=== PATIENT | female | born 1965 | race African-American/Black ===

== ENCOUNTER 2020-05-19 11:29 | Inpatient (IN) ==
[2020-05-19 11:39] VITALS: BMI 72.6
[2020-05-19] MEDS ORDERED: ZOFRAN INJ 4 MG VIAL IVP ONE (12:43)
--- NOTE | 2020-05-19 12:44 | DR.GENAD ---
HPI Time Seen Time Seen by Provider: 05/19/20 12:35 PCP Primary Care Physician: NEGAR HPI Comment HPI Comment: A 54 y/o female presents with 6 months of belching and she hasn't been told the cause. Currently, she has been feeling SOB, nauseous, and feels bad. She denies fever. She had a COVID-19 test done a few days back and got a negative report this morning. Complaint/Symptoms Chief Complaint:: PT STATES SHE GOT HER COVID RESULTS THIS AM AND IT WAS ( -) , PT C/O HEART RACING , AND SPITTING UP WHITE STUFF AND SHE STATES " I NEVER BEEN SO SICK " ,,BR Self Treatment fo Chief Complaint: PT STATES " NOBODY CAN TELL ME WHAT'S WRONG WITH ME AND WHY I FEEL SO BAD ".BR COVID-19 Coronavirus risk:travel/contact w/high risk person: No Has patient experienced Coronavirus symptoms: Yes Coronavirus symptoms experienced: Shortness of Breath Nurses notes reviewed Nurses Notes Review: Yes Source History Provided: Patient Mode of Arrival Mode of Arrival: Ambulatory Timing Onset of Chief Complaint: 05/17/20 [facility] Past Medical History: Yes Past Medical History Comment: HTN Past Surgical History: Yes Past Surgical History Comment: TUBAL Family History History of Family Medical Conditions: Yes Family Medical History: Diabetes Mellitus and Hypertension Social History Does patient currently use any type of tobacco product: No Have you used tobacco products in the last 12 months: No Type of Tobacco Use: None Does any household member use tobacco: No Alcohol Use: None Do you use any recreational Drugs:: No Lives With: Family Lives Where: Home Travel Risk Coronavirus risk:travel/contact w/high risk person: No Has patient experienced Coronavirus symptoms: Yes Coronavirus symptoms experienced: Shortness of Breath Infectious screening In the last 2 months have you had wt loss of >10#?: NO Have you had fever, night sweats or hemotysis?: No Have you traveled outside the country in the last 6 months?: No Isolation: Droplet ROS Review of Systems Constitutional: Other (bad) Eyes: No Symptoms Reported ENTM: No Symptoms Reported Respiratoy: Short of Breath Cardiovascular: No Symptoms Reported Gastrointestinal/Abdominal: Other (Belching) Genitourinary: No Symptoms Reported Neurological: No Symptoms Reported Musculoskeletal: No Symptoms Reported Integumentary: No Symptoms Reported Hematologic/Lymphatic: No Symptoms Reported Endocrine: No Symptoms Reported Psychiatric: No Symptoms Reported PE Vital Signs Vitals: Temperature 98.6 F Pulse Rate 81 Respiratory Rate 23 Blood Pressure 106/57 O2 Sat by Pulse Oximetry 95 General Limitations: No Limitations General Appearance: Alert, In No Apparent Distress and Obese Head Head Exam: Normal Inspection, Atraumatic and Normocephalic Eyes Eye exam: Normal Appearance and EOMI ENT ENT Exam: Normal Exam, Normal Oropharynx, Normal External Ear Exam and Mucous Membranes Moist Neck Neck Exam: Normal Inspection, Full ROM and Trachea Midline Chest Chest Inspection: Normal Inspection and Symmetric Chest Wall Rise Respiratory Respiratory Exam: Normal Lung Sounds Bilat Cardiovascular Cardiovascular Exam: Regular Rate, Normal Rhythm, Normal Heart Sounds, +S1 and +S2 Abdominal Exam Abdominal Exam: Normal Inspection, Normal Bowel Sounds, Soft and Tenderness Abdominal Tenderness: Epigastrium Extremities Extremities Exam: Normal Inspection and Full ROM Back Back Exam: Normal Inspection and Full ROM Neurologic Neurological Exam: Alert and Oriented X3 Psychiatric Psychiatric Exam: Normal Affect and Normal Mood Skin Skin Exam: Dry and Normal Color COURSE Treatment Treatment: From talking with her at follow-up and medical records review, she has been refered to and is already seeing a gastro-enterologist. She has had both an EGD and C-Scope. She is already taking both an H2 david and a PPI. She had work-up for same symptoms at presentation to the ED at [facility] ED yesterday. I'll give her an rx. for Simethicone and she is to follow-up with her primary Care Provider +/- G.I. next week after the holidays. Reevaluation 1st: Unchanged Education/Counseling Education/Counseling: Patient, Education and Counseling Educated On: Treatment, Diagnosis, Prognosis and Needs for Follow Up ROR Labs Reviewed Result Diagrams: 05/19/20 13:19 05/19/20 13:19 Laboratory: WBC 4.5 X10^3/uL (3.6-10.0) 05/19/20 13:19 RBC 4.75 X10^6/uL (3.5-5.4) 05/19/20 13:19 Hgb 12.3 g/dL (12.0-16.0) 05/19/20 13:19 Hct 38.8 % (36.0-47.0) 05/19/20 13:19 MCV 81.8 fL (80.0-100.0) 05/19/20 13:19 MCH 25.9 pg (27.0-34.0) L 05/19/20 13:19 MCHC 31.6 g/dL (33.0-35.0) L 05/19/20 13:19 RDW 13.9 % (11.6-16.5) 05/19/20 13:19 Plt Count 253 X10^3/uL (150.0-450.0) 05/19/20 13:19 Plt Count Comment Adequate (ADEQUATE) 05/19/20 13:19 MPV 7.9 fL (7.4-11.0) 05/19/20 13:19 Neut % (Auto) 60.1 % (42.0-75.0) 05/19/20 13:19 Lymph % (Auto) 26.6 % (21.0-51.0) 05/19/20 13:19 [place] % (Auto) 12.7 % (0.0-13.0) 05/19/20 13:19 Eos % (Auto) 0.1 % (0.9-2.9) L 05/19/20 13:19 Baso % (Auto) 0.5 % (0.2-1.0) 05/19/20 13:19 Neut # (Auto) 2.7 x10^3/uL (2.2-4.8) 05/19/20 13:19 Lymph # (Auto) 1.2 X10^3/uL (1.3-2.9) L 05/19/20 13:19 [place] # (Auto) 0.6 x10^3/uL (0.3-0.8) 05/19/20 13:19 Eos # (Auto) 0.0 x10^3/uL (0.0-0.2) 05/19/20 13:19 Baso # (Auto) 0.0 X10^3/uL (0.0-0.1) 05/19/20 13:19 Absolute Nucleated RBC 0.1 /100WBC 05/19/20 13:19 Plt Morphology Comment Normal (NORMAL) 05/19/20 13:19 RBC Morphology Abnormal (NORMAL) A 05/19/20 13:19 Hypochromasia Slight A 05/19/20 13:19 Sodium 136 mmol/L (136-145) 05/19/20 13:19 Corrected Sodium TNP 05/19/20 13:19 Potassium 4.3 mmol/L (3.5-5.1) 05/19/20 13:19 Chloride 99 mmol/L (98-107) 05/19/20 13:19 Carbon Dioxide 31.1 mmol/L (21-32) 05/19/20 13:19 BUN 16 mg/dL (7-18) 05/19/20 13:19 Creatinine 1.35 mg/dL (0.55-1.02) H 05/19/20 13:19 Est GFR (MDRD) Af Amer 52 (>60) L 05/19/20 13:19 Est GFR (MDRD) Non-Af 43 (>60) L 05/19/20 13:19 Glucose 110 mg/dL (65-99) H 05/19/20 13:19 Calcium 8.6 mg/dL (8.5-10.1) 05/19/20 13:19 Corrected Calcium 9.4 mg/dL (8.5-10.1) 05/19/20 13:19 Total Bilirubin 0.30 mg/dL (0.2-1.0) 05/19/20 13:19 AST 23 Units/L (15-37) 05/19/20 13:19 ALT 15 Units/L (12-78) 05/19/20 13:19 Alkaline Phosphatase 66 Units/L (46-116) 05/19/20 13:19 Total Protein 7.6 g/dL (6.4-8.2) 05/19/20 13:19 Albumin 3.0 g/dL (3.4-5.0) L 05/19/20 13:19 Globulin 4.6 g/dL (2.5-4.5) H 05/19/20 13:19 Albumin/Globulin Ratio 0.7 Ratio (1.1-2.1) L 05/19/20 13:19 Amylase 43 Units/L (25-115) 05/19/20 13:19 Lipase 210 Units/L (73-393) 05/19/20 13:19 Opioid Opioid Risk Tool Age (Jerad box if 16-45): No History of Preadolescent Sexual Abuse: No Total: 0 Total Score Risk Category: Low Risk Copyright: [facility] predicting aberrant behaviors Diagnosis Discharge Problem: Weakness, Belching, Acute epigastric pain, Nausea Instructions Instructions: Weakness, [id number] Nausea, Adult, [id number] Forms: Precautions for COVID19 Patient Portal Social Distancing ADDITIONAL NOTES Additional Notes Additional Notes: Name: GEETA ORTIZ : 1965 Sex: F Location: ER Order Number(s): [id number] Procedure(s):ACUTE ABDOMEN SERIES Ordering Physician: AMBROCIO JAMES Primary Care: NFD,None Service Date: 05/19/20 Service Time: 1253 HISTORY NAUSEA, ABDOMINAL PAIN HTN, TUBAL STUDY ACUTE ABDOMEN SERIES COMPARISON None FINDINGS Chest: There is mild cardiomegaly. There is a large body habitus. No evidence of effusion or pneumothorax. No dominant alveolar infiltrates. Abdomen: There is abnormal dilated small bowel loops, no evidence of free air, air throughout the colon, the liver appears enlarge as well as the spleen in the upright view. No significant air-fluid levels. Air in a decompressed stomach IMPRESSION 1. [No acute cardiopulmonary disease.] 2. [No significant air-fluid levels or dilated small-bowel loops. Decompressed stomach. Hepato and splenomegaly Electronically signed by: Lizet Reid (May 19, 2020 13:29:37)
[2020-05-19] MEDS ORDERED: ZOFRAN INJ 4 MG VIAL ONE (12:56)
--- NOTE | 2020-05-19 13:31 | RAD ---
HISTORYNAUSEA, ABDOMINAL PAIN HTN, TUBALSTUDYACUTE ABDOMEN SERIESCOMPARISONNoneFINDINGSChest: There is mild cardiomegaly. There is a large body habitus. No evidence of effusion or pneumothorax. No dominant alveolar infiltrates.Abdomen: There is abnormal dilated small bowel loops, no evidence of free air, air throughout the colon, the liver appears enlarge as well as the spleen in the upright view. No significant air-fluid levels. Air in a decompressed stomachIMPRESSION1. [No acute cardiopulmonary disease.]2. [No significant air-fluid levels or dilated small-bowel loops. Decompressed stomach. Hepato and splenomegalyElectronically signed by: Lizet Reid (May 19, 2020 13:29:37)
[2020-05-19 13:42] LABS: BASOPHILS % (AUTO) 0.5 % (0.2-1.0); EOSINOPHILS % (AUTO) 0.1 % (0.9-2.9); HEMATOCRIT 38.8 % (36.0-47.0); HEMOGLOBIN 12.3 g/dL (12.0-16.0); LYMPHOCYTES # (AUTO) 1.2 X10^3/uL (1.3-2.9); LYMPHOCYTES % (AUTO) 26.6 % (21.0-51.0); MEAN CORPUSCULAR HEMOGLOBIN 25.9 pg (27.0-34.0); MEAN CORPUSCULAR HGB CONC 31.6 g/dL (33.0-35.0); MEAN CORPUSCULAR VOLUME 81.8 fL (80.0-100.0); MEAN PLATELET VOLUME 7.9 fL (7.4-11.0); MONOCYTES # (AUTO) 0.6 x10^3/uL (0.3-0.8); MONOCYTES % (AUTO) 12.7 % (0.0-13.0); NEUTROPHILS # (AUTO) 2.7 x10^3/uL (2.2-4.8); NEUTROPHILS % (AUTO) 60.1 % (42.0-75.0); PLATELET COUNT 253 X10^3/uL (150.0-450.0); RED BLOOD COUNT 4.75 X10^6/uL (3.5-5.4); RED CELL DISTRIBUTION WIDTH 13.9 % (11.6-16.5); WHITE BLOOD COUNT 4.5 X10^3/uL (3.6-10.0)
[2020-05-19 13:43] LABS: ALANINE AMINOTRANSFERASE 15 Units/L (12-78); ALKALINE PHOSPHATASE 66 Units/L (46-116); AMYLASE 43 Units/L (25-115); ASPARTATE AMINO TRANSFERASE 23 Units/L (15-37); BLOOD UREA NITROGEN 16 mg/dL (7-18); CALCIUM 8.6 mg/dL (8.5-10.1); CARBON DIOXIDE 31.1 mmol/L (21-32); CHLORIDE 99 mmol/L (98-107); COR CA(FOR HYPOALB) 9.4 mg/dL (8.5-10.1); CREATININE 1.35 mg/dL (0.55-1.02); LIPASE 210 Units/L (73-393); SODIUM 136 mmol/L (136-145); TOTAL PROTEIN 7.6 g/dL (6.4-8.2); eGFR NON BLACK RACES 43 (>60)
[2020-05-19 14:07] LABS: HYPOCHROMASIA SLIGHT; PLATELET MORPHOLOGY COMMENT NORMAL (NORMAL)
[2020-05-19] MEDS ORDERED: MYLICON TAB 80 MG CHEW PO ONE (14:36)
[2020-05-19 15:46] LABS: ABG BASE EXCESS 5.1 mmol/L (-2.0-2.0)
[2020-05-19 15:47] LABS: ABG ALLEN TEST POS
[2020-05-19 16:47] LABS: CREATINE KINASE 148 Units/L (26-192)
[2020-05-19 16:48] LABS: TROPONIN I < 0.02 ng/mL (0-1.5)
[2020-05-19 16:53] LABS: CKMB % 0.7 % (<4); CREATINE KINASE MB < 1.0 ng/mL (0-4.0)
--- NOTE | 2020-05-19 17:00 | CT ---
HISTORYPT STATES SHE GOT HER COVID RESULTS THIS AM AND IT WAS, PT C/O HEART RACING, AND SPITTING UP WHITE STUFF AND SHE STATES "I NEVER BEEN SO SICK ". PT STATES "NOBODY CAN TELL ME WHAT'S WRONG WITH ME AND WHY I FEEL SO BAD" PT SEEN IN H TRUNCATED ...STUDYCTA CHESTCOMPARISONNoneTECHNIQUEPulmonary angiogram was performed after the administration of contrast. 3D MIPS images were performed. CT scan was performed following ALARA (As low as Reasonably Achievable).Coronal and Sagittal reformatted images were performed.FINDINGSThe thyroid gland is not enlarged. There is no evidence of pulmonary embolism, there are small right perihilar lymph nodes,there is no pleural or pericardial effusions, no adrenal masses.Lung windows demonstrate multiport areas of ground-glass radiopacities involving the upper lobe centrally and mild along the bases in the periphery consistent with viral pneumonia. No evidence of focal effusions. There is a sub carinal lymph node measuring in short axis 1.1 centimeter, there are enlarged pretracheal lymph nodes measuring 0.9 centimeters and there are multiple aortic pulmonary window lymph nodes measuring in short axis 1.2 centimeters.Bone windows no evidence of aggressive bone lesions, no acute fractures.IMPRESSIONNo evidence of pulmonary embolism. Mediastinal adenopathy involving sub carinal aortic, pulmonary window and right hilumPatchy ground-glass radiopacities involving the upper lobes centrally and peripheral as well as the lower lobes at the periphery suspicious for viral pneumonia.Electronically signed by: Lizet Reid (May 19, 2020 16:58:59)
[2020-05-19] MEDS ORDERED: ZOFRAN TAB 4 MG PO PRN (19:47)
[2020-05-19] MEDS ORDERED: NS 1000 ML 1,000 ML ONE (19:51)
[2020-05-19] MEDS: NS 1000 ML 1,000 ML IV SCH (20:15)
[2020-05-19] MEDS: ROCEPHIN VIAL 1 GRAM 1 G in NS 100 ML IV + SPIKE MINIBAG* 100 ML IV SCH (20:45)
[2020-05-19] MEDS: DUONEB 0.5 MG/3 MG (3 mL) NEB SCH (20:46)
[2020-05-19] MEDS: SOLU-Medrol 40 MG VIAL IVP SCH (21:42)
[2020-05-19] MEDS: PEPCID TAB 20 MG PO SCH (22:00)
[2020-05-20] MEDS: DUONEB 0.5 MG/3 MG (3 mL) NEB SCH ×6 (00:55→21:05)
[2020-05-20] MEDS: NS 1000 ML 1,000 ML IV SCH ×5 (04:32→20:39)
[2020-05-20 05:08] LABS: ABG BASE EXCESS 1.8 mmol/L (-2.0-2.0); ABG HCO3 27.7 mmol/L (22-26)
[2020-05-20 05:09] LABS: ABG ALLEN TEST POS
[2020-05-20 05:36] LABS: BASOPHILS % (AUTO) 0.2 % (0.2-1.0); HEMATOCRIT 37.6 % (36.0-47.0); LYMPHOCYTES # (AUTO) 0.3 X10^3/uL (1.3-2.9); LYMPHOCYTES % (AUTO) 9.5 % (21.0-51.0); MEAN CORPUSCULAR HEMOGLOBIN 25.9 pg (27.0-34.0); MEAN CORPUSCULAR HGB CONC 31.8 g/dL (33.0-35.0); MEAN CORPUSCULAR VOLUME 81.3 fL (80.0-100.0); MEAN PLATELET VOLUME 8.1 fL (7.4-11.0); MONOCYTES # (AUTO) 0.1 x10^3/uL (0.3-0.8); MONOCYTES % (AUTO) 3.5 % (0.0-13.0); NEUTROPHILS # (AUTO) 3.1 x10^3/uL (2.2-4.8); NEUTROPHILS % (AUTO) 86.8 % (42.0-75.0); PLATELET COUNT 273 X10^3/uL (150.0-450.0); RED BLOOD COUNT 4.63 X10^6/uL (3.5-5.4); WHITE BLOOD COUNT 3.6 X10^3/uL (3.6-10.0)
[2020-05-20] MEDS: SOLU-Medrol 40 MG VIAL IVP SCH ×3 (05:42→21:01)
[2020-05-20 05:57] LABS: ALBUMIN 2.8 g/dL (3.4-5.0); CARBON DIOXIDE 28.1 mmol/L (21-32); CREATININE 1.29 mg/dL (0.55-1.02); TOTAL PROTEIN 7.6 g/dL (6.4-8.2)
[2020-05-20 06:00] LABS: PLATELET MORPHOLOGY COMMENT NORMAL (NORMAL)
[2020-05-20] MEDS ORDERED: PREVACID PO SCH (06:30)
--- NOTE | 2020-05-20 06:55 | RAD ---
HISTORYF/U COVID +STUDYCHEST, 1 VIEWCOMPARISONCT dated 05/19/2020FINDINGSThe trachea is midline. The cardiac silhouette is enlarged with a tortuous thoracic aorta . Scattered interstitial lung changes throughout the right and left chest are observed. The bony thorax is unremarkable.IMPRESSIONPersistent interstitial lung changes are noted consistent with CT findings.Electronically signed by: NAVI SANTOS (May 20, 2020 06:52:55)
[2020-05-20] MEDS ORDERED: REMDESIVIR 200 MG in NS 250 ML IV 250 ML IV SCH (07:15)
[2020-05-20] MEDS ORDERED: PULMICORT NEB TX 0.5 MG NEB ONE (07:36)
--- NOTE | 2020-05-20 07:38 | DR.H&P ---
H&P - History & Physical for Day of: H&P Date: 05/19/20 - Chief Complaint Chief Complaint: COUGH, SOB, NAUSEA, BODY ACHES, MALAISE - History of Present Illness History of Present Illness: IS A 54 YEAR OLD FEMALE. SHE PRESENTED TO THE ER WITH COMPLAINTS OF SHORTNESS OF BREATH, NAUSEA, PRODUCTIVE COUGH, BODY ACHES, AND MALAISE. SHE ADMITS TO BELCHING FOR THE PAST 6 MONTHS. SHE REPORTS RECENTLY BEING SWABBED FOR COVID, BUT STATES THAT HER RESULT WAS NEGATIVE. SYMPTOMS STARTED ABOUT 3 DAYS PRIOR AND HAVE PROGRESSIVELY GOTTEN WORSE. SHE HAS A PMH OF HTN. ON ARRIVAL TO THE ER, VITALS WERE 98.6-95-20-88%RA-121/71. LABS WERE OBTAINED. ABNORMAL LAB VALUES INCLUDE THE FOLLOWING: D-DIMER 0.95, CREATININE 1.35, GLUCOSE 110, FERRITIN 346, CRP 91.60, ALBUMIN 3.0, GLOBULIN 4.6. AN ABG WAS OBTAINED AND REVEALED: PH 7.400, PC02 50.0, P02 40.0, HC03 31.0, 02 SAT 75.0, BASE EXCESS 5.1, FI02 21.0. CARDIAC ENZYMES WITHIN NORMAL LIMITS. COVID-19 POSITIVE. EKG REVEALED SINUS RHYTHM WITH HR 80. AN ABDOMINAL SERIES WAS OBTAINED AND REVEALED: 1. No acute cardiopulmonary disease. 2. No significant air-fluid levels or dilated small-bowel loops. Decompressed stomach. Hepato and splenomegaly. CHEST CTA REVEALED: No evidence of pulmonary embolism. Mediastinal adenopathy involving sub carinal aortic, pulmonary window and right hilum. Patchy ground-glass radiopacities involving the upper lobes centrally and peripheral as well as the lower lobes at the periphery suspicious for viral pneumonia. SHE WAS GIVEN ZOFRAN 4MG IV X 1 AND MYLICON 80MG PO X 1 FOR THE BELCHING IN THE ER. SHE WAS ADMITTED TO THE HOSPITAL FOR FURTHER EVALUATION AND TREATMENT OF PNEUMONIA DUE TO COVID-19 AND HYPOXIA. SHE WAS STARTED ON NS AT 125 ML/HR, REMDESIVIR 200MG IV X 1, THEN 100MG IV DAILY, CEFTRIAXONE 1G IV DAILY, SOLU-MEDROL 80MG IV Q8H, DUONEBS Q4H, PULMICORT NEBS BID, BENTYL 10MG PRN, PEPCID 20MG PO BID, ZOFRAN 4MG PO Q8H PRN, NORVASC 5MG PO DAILY. SHE WAS PLACED ON SUPPLEMENTAL OXYGEN VIA NASAL CANNULA AT 4L/MIN. OTHERWISE, WE PLAN TO FOLLOW UP WITH AM LABS, CHEST XRAY, ABG, AND CONTINUE TO MONITOR. - Past Medical History Past Medical History: Hypertension - Family History Family Medical History: Diabetes Mellitus, Cancer, Hypertension - Social History Does patient currently use any type of tobacco product: No Have you used tobacco products in the last 12 months: No Type of Tobacco Use: None Does any household member use tobacco: No Alcohol Use: None Drug Use: None - Medications Home Medications: No Known Drug Allergies Allergy (Verified 05/19/20 11:39) CONTINUE taking the following medications amlodipine 5 mg PO DAILY 05/19/20 [History] dicyclomine 10 mg PO PRN PRN 05/19/20 [History] famotidine 20 mg PO BID 05/19/20 [History] lansoprazole 30 mg PO AC 05/19/20 [History] ondansetron HCl 4 mg PO TID PRN 05/19/20 [History] pantoprazole [Protonix] 20 mg PO DAILY 05/19/20 [History] promethazine 25 mg PO PRN PRN 05/19/20 [History] New Prescriptions simethicone 125 mg PO TID PRN #30 tab 05/19/20 [Rx] - Review of Systems Constitutional: Fever, Weakness Eyes: No Symptoms Reported ENT: No Symptoms Reported Respiratory: See HPI, Cough, Shortness of Breath, Sputum, Wheezing Cardiovascular: No Symptoms Reported Gastrointestinal: See HPI, Nausea Genitourinary: No Symptoms Reported Musculoskeletal: No Symptoms Reported Skin: No Symptoms Reported Neurological: Weakness - Physical Exam Vital Signs: Temperature 98.3 F Pulse Rate 80 Respiratory Rate 19 Blood Pressure 103/57 O2 Sat by Pulse Oximetry 92 Oriented: Normal Eyes: Normal Ear: Normal Nose: Normal Throat: Normal Respiratory: Wheezes Throughout Cardiovascular: Normal : Normal Auscultation: Bowel Sounds: Normal Palpation: Normal Tenderness: Normal Skin: Normal Musculoskeletal: Normal Psychiatric: Normal Mood Description: Calm Affect: Normal Speech Pattern: Clear - Assessment/Plan (1) Pneumonia due to 2019 novel coronavirus Status: Acute Plan: ADMIT, NS AT 125 ML/HR, REMDESIVIR 200MG IV X 1, THEN 100MG IV DAILY, CEFTRIAXONE 1G IV DAILY, SOLU-MEDROL 80MG IV Q8H, DUONEBS Q4H, PULMICORT NEBS BID, BENTYL 10MG PRN, PEPCID 20MG PO BID, ZOFRAN 4MG PO Q8H PRN, NORVASC 5MG PO DAILY (2) Hypoxemia Status: Acute - Allergies Allergies/Adverse Reactions: Allergies Allergy/AdvReac Type Severity Reaction Status Date / Time No Known Drug Allergies Allergy Verified 05/19/20 11:39
[2020-05-20] MEDS ORDERED: REMDESIVIR IV ONE (08:15)
[2020-05-20] MEDS ORDERED: NS 250 ML IV 250 ML IV ONE (08:16)
[2020-05-20] MEDS: ROCEPHIN VIAL 1 GRAM 1 G in NS 100 ML IV + SPIKE MINIBAG* 100 ML IV SCH (08:50)
[2020-05-20] MEDS: PEPCID TAB 20 MG PO SCH ×2 (08:50→20:38)
[2020-05-20] MEDS: MUCOMYST (RESPIRATORY USE ONLY) NEB SCH ×5 (09:30→21:29)
[2020-05-20] MEDS: PULMICORT NEB TX 0.5 MG NEB SCH ×2 (09:30→21:05)
[2020-05-20] MEDS: NORVASC TAB 5 MG PO SCH (09:44)
[2020-05-20] MEDS: LOVENOX INJ 30 MG SYR SC SCH ×2 (10:19→20:37)
[2020-05-20] MEDS: PROTONIX INJ 40 MG VIAL IVP SCH (10:19)
[2020-05-20] MEDS: BENTYL CAP 10 MG PO PRN (20:38)
[2020-05-21] MEDS: DUONEB 0.5 MG/3 MG (3 mL) NEB SCH ×6 (00:55→20:30)
[2020-05-21 05:29] LABS: BASOPHILS # (AUTO) 0.2 X10^3/uL (0.0-0.1); BASOPHILS % (AUTO) 2.9 % (0.2-1.0); EOSINOPHILS % (AUTO) 0.4 % (0.9-2.9); HEMATOCRIT 38.3 % (36.0-47.0); HEMOGLOBIN 12.3 g/dL (12.0-16.0); LYMPHOCYTES # (AUTO) 0.7 X10^3/uL (1.3-2.9); LYMPHOCYTES % (AUTO) 10.6 % (21.0-51.0); MEAN CORPUSCULAR HGB CONC 32.2 g/dL (33.0-35.0); MEAN CORPUSCULAR VOLUME 80.7 fL (80.0-100.0); MEAN PLATELET VOLUME 7.5 fL (7.4-11.0); MONOCYTES # (AUTO) 0.6 x10^3/uL (0.3-0.8); MONOCYTES % (AUTO) 8.6 % (0.0-13.0); NEUTROPHILS # (AUTO) 5.2 x10^3/uL (2.2-4.8); NEUTROPHILS % (AUTO) 77.5 % (42.0-75.0); PLATELET COUNT 322 X10^3/uL (150.0-450.0); RED BLOOD COUNT 4.74 X10^6/uL (3.5-5.4); RED CELL DISTRIBUTION WIDTH 13.8 % (11.6-16.5); WHITE BLOOD COUNT 6.7 X10^3/uL (3.6-10.0)
[2020-05-21 05:45] LABS: ABG ALLEN TEST POS; ABG BASE EXCESS 3.1 mmol/L (-2.0-2.0); ABG HCO3 28.5 mmol/L (22-26)
[2020-05-21] MEDS: NS 1000 ML 1,000 ML IV SCH ×3 (05:47→21:17)
[2020-05-21] MEDS: SOLU-Medrol 40 MG VIAL IVP SCH (05:48)
[2020-05-21 05:56] LABS: ALANINE AMINOTRANSFERASE 19 Units/L (12-78); ALBUMIN 2.7 g/dL (3.4-5.0); ALKALINE PHOSPHATASE 62 Units/L (46-116); ASPARTATE AMINO TRANSFERASE 22 Units/L (15-37); BLOOD UREA NITROGEN 13 mg/dL (7-18); CALCIUM 8.2 mg/dL (8.5-10.1); CARBON DIOXIDE 25.9 mmol/L (21-32); CHLORIDE 105 mmol/L (98-107); COR CA(FOR HYPOALB) 9.2 mg/dL (8.5-10.1); COR NA(FOR HYPERGLY) 143 mmol/L (136-145); CREATININE 0.96 mg/dL (0.55-1.02); SODIUM 140 mmol/L (136-145); TOTAL PROTEIN 7.5 g/dL (6.4-8.2); eGFR NON BLACK RACES > 60 (>60)
[2020-05-21] MEDS: PEPCID TAB 20 MG PO SCH ×2 (08:57→21:18)
[2020-05-21] MEDS: PROTONIX INJ 40 MG VIAL IVP SCH (08:57)
[2020-05-21] MEDS: LOVENOX INJ 30 MG SYR SC SCH ×2 (08:57→21:17)
[2020-05-21] MEDS: NORVASC TAB 5 MG PO SCH (08:57)
[2020-05-21] MEDS: ROCEPHIN VIAL 1 GRAM 1 G in NS 100 ML IV + SPIKE MINIBAG* 100 ML IV SCH (08:58)
[2020-05-21] MEDS: REMDESIVIR 100 MG in NS 250 ML IV 250 ML IV SCH (08:58)
[2020-05-21] MEDS: PULMICORT NEB TX 0.5 MG NEB SCH ×2 (09:00→20:30)
[2020-05-21] MEDS: MUCOMYST (RESPIRATORY USE ONLY) NEB SCH ×4 (09:00→20:30)
[2020-05-21] MEDS: BENTYL CAP 10 MG PO PRN (09:17)
[2020-05-21] MEDS ORDERED: DECADRON INJ PRESERVATIVE-FREE IVP ONE (12:28)
[2020-05-21] MEDS ORDERED: XANAX PO PRN (12:35)
[2020-05-21] MEDS: VITAMIN D3 125 mcg (5,000 UNITS) PO SCH (13:02)
[2020-05-21] MEDS: VITAMIN A PO SCH (13:02)
[2020-05-22] MEDS: DUONEB 0.5 MG/3 MG (3 mL) NEB SCH ×6 (00:30→20:43)
[2020-05-22] MEDS: NS 1000 ML 1,000 ML IV SCH ×4 (04:30→20:50)
[2020-05-22 05:27] LABS: BASOPHILS % (AUTO) 0.3 % (0.2-1.0); HEMATOCRIT 37.8 % (36.0-47.0); HEMOGLOBIN 11.9 g/dL (12.0-16.0); LYMPHOCYTES # (AUTO) 0.3 X10^3/uL (1.3-2.9); LYMPHOCYTES % (AUTO) 3.3 % (21.0-51.0); MEAN CORPUSCULAR HEMOGLOBIN 25.8 pg (27.0-34.0); MEAN CORPUSCULAR HGB CONC 31.4 g/dL (33.0-35.0); MEAN PLATELET VOLUME 8.2 fL (7.4-11.0); MONOCYTES # (AUTO) 0.9 x10^3/uL (0.3-0.8); MONOCYTES % (AUTO) 8.9 % (0.0-13.0); NEUTROPHILS # (AUTO) 8.8 x10^3/uL (2.2-4.8); NEUTROPHILS % (AUTO) 87.5 % (42.0-75.0); PLATELET COUNT 356 X10^3/uL (150.0-450.0); RED CELL DISTRIBUTION WIDTH 14.2 % (11.6-16.5); WHITE BLOOD COUNT 10.1 X10^3/uL (3.6-10.0)
[2020-05-22 05:35] LABS: ALANINE AMINOTRANSFERASE 14 Units/L (12-78); ALBUMIN 2.4 g/dL (3.4-5.0); ALKALINE PHOSPHATASE 59 Units/L (46-116); ASPARTATE AMINO TRANSFERASE 19 Units/L (15-37); BLOOD UREA NITROGEN 14 mg/dL (7-18); CALCIUM 7.9 mg/dL (8.5-10.1); CARBON DIOXIDE 24.2 mmol/L (21-32); CHLORIDE 106 mmol/L (98-107); COR CA(FOR HYPOALB) 9.2 mg/dL (8.5-10.1); COR NA(FOR HYPERGLY) 144 mmol/L (136-145); CREATININE 0.95 mg/dL (0.55-1.02); SODIUM 141 mmol/L (136-145); TOTAL PROTEIN 6.7 g/dL (6.4-8.2); eGFR NON BLACK RACES > 60 (>60)
[2020-05-22 05:50] LABS: PLATELET MORPHOLOGY COMMENT NORMAL (NORMAL)
[2020-05-22 05:51] LABS: HYPOCHROMASIA SLIGHT
[2020-05-22] MEDS: MUCOMYST (RESPIRATORY USE ONLY) NEB SCH ×4 (08:55→20:44)
[2020-05-22] MEDS: PULMICORT NEB TX 0.5 MG NEB SCH ×2 (08:55→20:43)
[2020-05-22] MEDS: VITAMIN D3 125 mcg (5,000 UNITS) PO SCH (09:32)
[2020-05-22] MEDS: PROTONIX INJ 40 MG VIAL IVP SCH (09:33)
[2020-05-22] MEDS: PEPCID TAB 20 MG PO SCH ×2 (09:33→20:54)
[2020-05-22] MEDS: NORVASC TAB 5 MG PO SCH (09:33)
[2020-05-22] MEDS: LOVENOX INJ 30 MG SYR SC SCH ×2 (09:33→20:53)
[2020-05-22] MEDS: REMDESIVIR 100 MG in NS 250 ML IV 250 ML IV SCH (09:33)
[2020-05-22] MEDS: ROCEPHIN VIAL 1 GRAM 1 G in NS 100 ML IV + SPIKE MINIBAG* 100 ML IV SCH (09:34)
[2020-05-22] MEDS: VITAMIN A PO SCH (11:42)
[2020-05-22] MEDS: ASCORBIC ACID INJ MULTI-DOSE VIAL 1,500 MG in NS 100 ML IV 100 ML IV SCH ×3 (15:28→20:53)
[2020-05-23] MEDS: DUONEB 0.5 MG/3 MG (3 mL) NEB SCH ×6 (00:17→20:45)
[2020-05-23] MEDS: ASCORBIC ACID INJ MULTI-DOSE VIAL 1,500 MG in NS 100 ML IV 100 ML IV SCH ×4 (03:33→21:11)
[2020-05-23 06:15] LABS: BASOPHILS % (AUTO) 0.3 % (0.2-1.0); HEMATOCRIT 37.4 % (36.0-47.0); HEMOGLOBIN 11.8 g/dL (12.0-16.0); LYMPHOCYTES # (AUTO) 1.2 X10^3/uL (1.3-2.9); LYMPHOCYTES % (AUTO) 12.9 % (21.0-51.0); MEAN CORPUSCULAR HEMOGLOBIN 25.8 pg (27.0-34.0); MEAN CORPUSCULAR HGB CONC 31.6 g/dL (33.0-35.0); MEAN CORPUSCULAR VOLUME 81.7 fL (80.0-100.0); MEAN PLATELET VOLUME 8.3 fL (7.4-11.0); MONOCYTES % (AUTO) 10.4 % (0.0-13.0); NEUTROPHILS # (AUTO) 7.2 x10^3/uL (2.2-4.8); NEUTROPHILS % (AUTO) 76.4 % (42.0-75.0); PLATELET COUNT 401 X10^3/uL (150.0-450.0); RED BLOOD COUNT 4.58 X10^6/uL (3.5-5.4); RED CELL DISTRIBUTION WIDTH 14.3 % (11.6-16.5); WHITE BLOOD COUNT 9.4 X10^3/uL (3.6-10.0)
[2020-05-23 06:23] LABS: ALANINE AMINOTRANSFERASE 16 Units/L (12-78); ALBUMIN 2.4 g/dL (3.4-5.0); ALKALINE PHOSPHATASE 62 Units/L (46-116); ASPARTATE AMINO TRANSFERASE 19 Units/L (15-37); BLOOD UREA NITROGEN 14 mg/dL (7-18); CALCIUM 7.8 mg/dL (8.5-10.1); CARBON DIOXIDE 25.9 mmol/L (21-32); CHLORIDE 107 mmol/L (98-107); COR CA(FOR HYPOALB) 9.1 mg/dL (8.5-10.1); COR NA(FOR HYPERGLY) 143 mmol/L (136-145); CREATININE 0.89 mg/dL (0.55-1.02); SODIUM 141 mmol/L (136-145); TOTAL PROTEIN 6.5 g/dL (6.4-8.2); eGFR NON BLACK RACES > 60 (>60)
[2020-05-23 07:05] LABS: PLATELET MORPHOLOGY COMMENT NORMAL (NORMAL)
[2020-05-23] MEDS ORDERED: REMDESIVIR 100 MG in NS 250 ML IV 250 ML IV SCH (09:00)
[2020-05-23] MEDS: NORVASC TAB 5 MG PO SCH (09:30)
[2020-05-23] MEDS: VITAMIN D3 125 mcg (5,000 UNITS) PO SCH (09:30)
[2020-05-23] MEDS: REMDESIVIR 100 MG in NS 250 ML IV 250 ML IV SCH (09:30)
[2020-05-23] MEDS: LOVENOX INJ 30 MG SYR SC SCH ×2 (09:30→21:12)
[2020-05-23] MEDS: ROCEPHIN VIAL 1 GRAM 1 G in NS 100 ML IV + SPIKE MINIBAG* 100 ML IV SCH (09:31)
[2020-05-23] MEDS: VITAMIN A PO SCH (09:31)
[2020-05-23] MEDS: PEPCID TAB 20 MG PO SCH ×2 (09:31→21:11)
[2020-05-23] MEDS: PROTONIX INJ 40 MG VIAL IVP SCH (09:31)
[2020-05-23] MEDS: PULMICORT NEB TX 0.5 MG NEB SCH ×2 (09:45→20:45)
[2020-05-23] MEDS: MUCOMYST (RESPIRATORY USE ONLY) NEB SCH ×4 (09:45→20:45)
[2020-05-23] MEDS: ACTOS PO SCH (13:47)
[2020-05-23] MEDS: GLUCOPHAGE XR 24-HR PO SCH ×2 (13:47→21:12)
[2020-05-23] MEDS: NS 1000 ML 1,000 ML IV SCH ×3 (14:46→21:11)
[2020-05-24] MEDS: DUONEB 0.5 MG/3 MG (3 mL) NEB SCH ×6 (00:26→21:29)
[2020-05-24] MEDS: ASCORBIC ACID INJ MULTI-DOSE VIAL 1,500 MG in NS 100 ML IV 100 ML IV SCH ×4 (02:40→21:16)
[2020-05-24] MEDS: NS 1000 ML 1,000 ML IV SCH ×3 (06:06→20:43)
[2020-05-24 06:16] LABS: BASOPHILS % (AUTO) 0.3 % (0.2-1.0); EOSINOPHILS # (AUTO) 0.1 x10^3/uL (0.0-0.2); HEMATOCRIT 37.8 % (36.0-47.0); HEMOGLOBIN 11.9 g/dL (12.0-16.0); LYMPHOCYTES # (AUTO) 1.7 X10^3/uL (1.3-2.9); MEAN CORPUSCULAR HEMOGLOBIN 25.7 pg (27.0-34.0); MEAN CORPUSCULAR HGB CONC 31.5 g/dL (33.0-35.0); MEAN CORPUSCULAR VOLUME 81.7 fL (80.0-100.0); MEAN PLATELET VOLUME 7.8 fL (7.4-11.0); MONOCYTES # (AUTO) 0.9 x10^3/uL (0.3-0.8); NEUTROPHILS # (AUTO) 6.1 x10^3/uL (2.2-4.8); NEUTROPHILS % (AUTO) 69.7 % (42.0-75.0); PLATELET COUNT 402 X10^3/uL (150.0-450.0); RED BLOOD COUNT 4.62 X10^6/uL (3.5-5.4); RED CELL DISTRIBUTION WIDTH 14.3 % (11.6-16.5); WHITE BLOOD COUNT 8.8 X10^3/uL (3.6-10.0)
[2020-05-24 06:36] LABS: ALANINE AMINOTRANSFERASE 17 Units/L (12-78); ALBUMIN 2.3 g/dL (3.4-5.0); ALKALINE PHOSPHATASE 58 Units/L (46-116); ASPARTATE AMINO TRANSFERASE 20 Units/L (15-37); BLOOD UREA NITROGEN 11 mg/dL (7-18); CALCIUM 8.2 mg/dL (8.5-10.1); CARBON DIOXIDE 29.9 mmol/L (21-32); CHLORIDE 106 mmol/L (98-107); COR CA(FOR HYPOALB) 9.6 mg/dL (8.5-10.1); COR NA(FOR HYPERGLY) 143 mmol/L (136-145); CREATININE 0.78 mg/dL (0.55-1.02); SODIUM 142 mmol/L (136-145); TOTAL PROTEIN 6.3 g/dL (6.4-8.2); eGFR NON BLACK RACES > 60 (>60)
--- NOTE | 2020-05-24 07:18 | RAD ---
HISTORYFollow-up pneumoniaSTUDYChest AP [id number]/26/2020, CTA chest 05/19/2020FINDINGSThe heart remains enlarged. No definite congestive heart failure is noted. Perihilar interstitial and ground-glass lung infiltrates are again identified and are unchanged. There are some peripheral ground-glass lung infiltrates in the upper lobes bilaterally. Bibasilar infiltrates are also likely present. These findings are not significantly changed from the prior examination. No pleural effusions are identified. Bony thorax is unremarkable.IMPRESSIONNo change cardiomegaly without congestive heart failureNo change bilateral infiltratesElectronically signed by: CHERISE DIXON (May 24, 2020 07:15:11)
[2020-05-24 07:22] LABS: PLATELET MORPHOLOGY COMMENT NORMAL (NORMAL)
[2020-05-24] MEDS: PULMICORT NEB TX 0.5 MG NEB SCH ×2 (08:45→21:29)
[2020-05-24] MEDS: MUCOMYST (RESPIRATORY USE ONLY) NEB SCH ×3 (08:45→17:25)
[2020-05-24] MEDS ORDERED: SOLU-Medrol 40 MG VIAL IVP SCH (09:00)
[2020-05-24] MEDS: ACTOS PO SCH (09:07)
[2020-05-24] MEDS: GLUCOPHAGE XR 24-HR PO SCH ×2 (09:08→20:40)
[2020-05-24] MEDS: REMDESIVIR 100 MG in NS 250 ML IV 250 ML IV SCH (09:10)
[2020-05-24] MEDS: PEPCID TAB 20 MG PO SCH ×2 (09:11→20:40)
[2020-05-24] MEDS: PROTONIX INJ 40 MG VIAL IVP SCH (09:12)
[2020-05-24] MEDS: NORVASC TAB 5 MG PO SCH (09:12)
[2020-05-24] MEDS: ROCEPHIN VIAL 1 GRAM 1 G in NS 100 ML IV + SPIKE MINIBAG* 100 ML IV SCH (09:13)
[2020-05-24] MEDS: VITAMIN D3 125 mcg (5,000 UNITS) PO SCH (09:14)
[2020-05-24] MEDS: LOVENOX INJ 30 MG SYR SC SCH ×2 (09:14→20:42)
[2020-05-24] MEDS: VITAMIN A PO SCH (09:14)
--- NOTE | 2020-05-24 13:03 | PCM.PROG ---
Progress Note Progress Note for Day of Date of Exam: 05/24/20 Subjective Subjective: Pt is a 55 y/o female pmhx HTN, DMT2, admitted for COVID19 pneumonia(05/19). This morning she reports feeling a little better compared to yesterday. She still feels really short of breath on ambulation. Labs/imaging: Wbc 8.8, Hgb 11.9, Plt 402, Na 142, K 4.1, Cr 0.78, Glucose 124, CRP 19>69. CXR:Perihilar interstitial and ground-glass lung infiltrates are again identified and are unchanged. There are some peripheralground-glass lung infiltrates in the upper lobes bilaterally. Bibasilar infiltrates are also likely present. Treatment course includes: IVF, Rocephin, Remdesivir, Bronchodil ators, immune supplements, supplemental O2, RT, Pneumonia protocol. Pt is currently on heated high flow at 15L/minute FiO2 47%. Will decrease rate of IVF, d/c Rocephin and add Zosyn, start on IV Solumedrol 80mg Q8h, add Tricor, order convalescent plasma. Continue to wean FiO2 as tolerated. Continue to monitor and follow up labs/imaging in the morning. Past Medical Family Social History Past Med/Fam/Surg Hx: No changes since H&P Allergies: Allergies No Known Drug Allergies Allergy (Verified 05/19/20 11:39) Review of Systems ROS: No change since H&P Vital Signs and I&O's Vital Signs: Temperature 98.1 F Pulse Rate 87 Respiratory Rate 24 Blood Pressure 149/67 O2 Sat by Pulse Oximetry 92 Intake and Output: Intake & Output 05/21/20 05/22/20 05/23/20 05/24/20 23:59 23:59 23:59 23:59 Intake Total 3440 / 3440 2520 / 2520 3815 / 3815 1364 / 1364 Balance 3440 / 3440 2520 / 2520 3815 / 3815 1364 / 1364 Physical Exam Oriented: Normal Eyes: Normal Ear: Normal Nose: Normal Throat: Normal Respiratory: Diminished Cardiovascular: Normal : Normal Auscultation: Bowel Sounds: Normal Tenderness: Normal Skin: Normal Musculoskeletal: Normal Psychiatric: Normal Mood Description: Calm Affect: Normal Speech Pattern: Clear and Appropriate Laboratory and Diagnostics Result Diagrams: 05/24/20 05:30 05/24/20 05:30 Labs: Laboratory WBC 8.8 X10^3/uL (3.6-10.0) 05/24/20 05:30 RBC 4.62 X10^6/uL (3.5-5.4) 05/24/20 05:30 Hgb 11.9 g/dL (12.0-16.0) L 05/24/20 05:30 Hct 37.8 % (36.0-47.0) 05/24/20 05:30 MCV 81.7 fL (80.0-100.0) 05/24/20 05:30 MCH 25.7 pg (27.0-34.0) L 05/24/20 05:30 MCHC 31.5 g/dL (33.0-35.0) L 05/24/20 05:30 RDW 14.3 % (11.6-16.5) 05/24/20 05:30 Plt Count 402 X10^3/uL (150.0-450.0) 05/24/20 05:30 Plt Count Comment Adequate (ADEQUATE) 05/24/20 05:30 MPV 7.8 fL (7.4-11.0) 05/24/20 05:30 Neut % (Auto) 69.7 % (42.0-75.0) 05/24/20 05:30 Lymph % (Auto) 19.0 % (21.0-51.0) L 05/24/20 05:30 [place] % (Auto) 10.0 % (0.0-13.0) 05/24/20 05:30 Eos % (Auto) 1.0 % (0.9-2.9) 05/24/20 05:30 Baso % (Auto) 0.3 % (0.2-1.0) 05/24/20 05:30 Neut # (Auto) 6.1 x10^3/uL (2.2-4.8) H 05/24/20 05:30 Lymph # (Auto) 1.7 X10^3/uL (1.3-2.9) 05/24/20 05:30 [place] # (Auto) 0.9 x10^3/uL (0.3-0.8) H 05/24/20 05:30 Eos # (Auto) 0.1 x10^3/uL (0.0-0.2) 05/24/20 05:30 Baso # (Auto) 0.0 X10^3/uL (0.0-0.1) 05/24/20 05:30 Absolute Nucleated RBC 0.0 /100WBC 05/24/20 05:30 Plt Morphology Comment Normal (NORMAL) 05/24/20 05:30 RBC Morphology Normal (NORMAL) 05/24/20 05:30 Hypochromasia Slight A 05/22/20 05:00 D-Dimer 0.95 ug/ml (0.0-0.57) H* 05/19/20 13:19 Sample Site Lrad 05/21/20 05:39 ABG pH 7.400 (7.35-7.45) 05/21/20 05:39 ABG pCO2 46.0 mmHg (35.0-45.0) H 05/21/20 05:39 ABG pO2 56.0 mmHg (80.0-100.0) L 05/21/20 05:39 ABG HCO3 28.5 mmol/L (22-26) H 05/21/20 05:39 ABG O2 Saturation 89.0 % (90-100) L 05/21/20 05:39 ABG Base Excess 3.1 mmol/L (-2.0-2.0) H 05/21/20 05:39 Tristen Test Pos 05/21/20 05:39 A-a Gradient 143.0 mmHg 05/21/20 05:39 FiO2 36.0 05/21/20 05:39 Blood Gas Comments Kd abg well-mtf 05/21/20 05:39 Sodium 142 mmol/L (136-145) 05/24/20 05:30 Corrected Sodium 143 mmol/L (136-145) 05/24/20 05:30 Potassium 4.1 mmol/L (3.5-5.1) 05/24/20 05:30 Chloride 106 mmol/L (98-107) 05/24/20 05:30 Carbon Dioxide 29.9 mmol/L (21-32) 05/24/20 05:30 BUN 11 mg/dL (7-18) 05/24/20 05:30 Creatinine 0.78 mg/dL (0.55-1.02) 05/24/20 05:30 Est GFR (MDRD) Af Amer > 60 (>60) 05/24/20 05:30 Est GFR (MDRD) Non-Af > 60 (>60) 05/24/20 05:30 Glucose 124 mg/dL (65-99) H 05/24/20 05:30 Calcium 8.2 mg/dL (8.5-10.1) L 05/24/20 05:30 Corrected Calcium 9.6 mg/dL (8.5-10.1) 05/24/20 05:30 Ferritin 324 ng/mL (8-252) H 05/23/20 05:15 Total Bilirubin 0.20 mg/dL (0.2-1.0) 05/24/20 05:30 AST 20 Units/L (15-37) 05/24/20 05:30 ALT 17 Units/L (12-78) 05/24/20 05:30 Alkaline Phosphatase 58 Units/L (46-116) 05/24/20 05:30 Creatine Kinase 148 Units/L (26-192) 05/19/20 13:19 CK-MB (CK-2) < 1.0 ng/mL (0-4.0) 05/19/20 13:19 CK/CKMB % Calc 0.7 % (<4) 05/19/20 13:19 Troponin I < 0.02 ng/mL (0-1.5) 05/19/20 13:19 C-Reactive Protein 69.70 mg/L (0-3.0) H 05/24/20 05:30 Total Protein 6.3 g/dL (6.4-8.2) L 05/24/20 05:30 Albumin 2.3 g/dL (3.4-5.0) L 05/24/20 05:30 Globulin 4.0 g/dL (2.5-4.5) 05/24/20 05:30 Albumin/Globulin Ratio 0.6 Ratio (1.1-2.1) L 05/24/20 05:30 Amylase 43 Units/L (25-115) 05/19/20 13:19 Lipase 210 Units/L (73-393) 05/19/20 13:19 SARS-CoV-2 (PCR) Positive (NEGATIVE) A 05/19/20 17:34 Plan (1) Pneumonia due to 2019 novel coronavirus: Status: Acute Plan: IVF, REMDESIVIR, ZOSYN, SOLU-MEDROL 80MG IV Q8H, DUONEBS Q4H, PULMICORT NEBS BID, ORDER CONVALESCENT PLASMA (2) Hypoxemia: Status: Acute
[2020-05-24] MEDS: ZOSYN VIAL 3.375 GRAMS 3.375 G in NS 100 ML IV + SPIKE MINIBAG* 100 ML IV SCH ×2 (16:21→21:15)
[2020-05-24] MEDS: TRICOR TAB 160 MG PO SCH (16:21)
[2020-05-24] MEDS ORDERED: SOLU-Medrol 40 MG VIAL ONE (20:13)
[2020-05-24] MEDS: HumuLIN R SC PRN (20:48)
[2020-05-24] MEDS: SOLU-Medrol 40 MG VIAL IVP SCH (21:14)
[2020-05-25] MEDS: DUONEB 0.5 MG/3 MG (3 mL) NEB SCH ×6 (01:00→21:40)
[2020-05-25] MEDS: ASCORBIC ACID INJ MULTI-DOSE VIAL 1,500 MG in NS 100 ML IV 100 ML IV SCH ×4 (04:00→20:54)
[2020-05-25] MEDS: NS 1000 ML 1,000 ML IV SCH ×3 (04:16→21:44)
[2020-05-25] MEDS: ZOSYN VIAL 3.375 GRAMS 3.375 G in NS 100 ML IV + SPIKE MINIBAG* 100 ML IV SCH ×3 (05:11→21:44)
[2020-05-25] MEDS: SOLU-Medrol 40 MG VIAL IVP SCH ×3 (05:11→21:44)
[2020-05-25 05:33] LABS: BASOPHILS % (AUTO) 0.1 % (0.2-1.0); EOSINOPHILS # (AUTO) 0.3 x10^3/uL (0.0-0.2); EOSINOPHILS % (AUTO) 4.1 % (0.9-2.9); HEMATOCRIT 39.4 % (36.0-47.0); HEMOGLOBIN 12.5 g/dL (12.0-16.0); LYMPHOCYTES # (AUTO) 0.6 X10^3/uL (1.3-2.9); LYMPHOCYTES % (AUTO) 7.8 % (21.0-51.0); MEAN CORPUSCULAR HEMOGLOBIN 25.8 pg (27.0-34.0); MEAN CORPUSCULAR HGB CONC 31.8 g/dL (33.0-35.0); MEAN CORPUSCULAR VOLUME 81.4 fL (80.0-100.0); MEAN PLATELET VOLUME 7.9 fL (7.4-11.0); MONOCYTES # (AUTO) 0.3 x10^3/uL (0.3-0.8); NEUTROPHILS # (AUTO) 6.7 x10^3/uL (2.2-4.8); PLATELET COUNT 455 X10^3/uL (150.0-450.0); RED BLOOD COUNT 4.84 X10^6/uL (3.5-5.4); RED CELL DISTRIBUTION WIDTH 14.2 % (11.6-16.5)
[2020-05-25 06:03] LABS: HYPOCHROMASIA SLIGHT; PLATELET MORPHOLOGY COMMENT NORMAL (NORMAL)
[2020-05-25] MEDS: HumuLIN R SC PRN ×3 (06:05→20:59)
[2020-05-25 07:02] LABS: ALANINE AMINOTRANSFERASE 20 Units/L (12-78); ALBUMIN 2.3 g/dL (3.4-5.0); ALKALINE PHOSPHATASE 61 Units/L (46-116); ASPARTATE AMINO TRANSFERASE 30 Units/L (15-37); BLOOD UREA NITROGEN 15 mg/dL (7-18); CALCIUM 8.5 mg/dL (8.5-10.1); CARBON DIOXIDE 28.9 mmol/L (21-32); CHLORIDE 106 mmol/L (98-107); COR CA(FOR HYPOALB) 9.9 mg/dL (8.5-10.1); COR NA(FOR HYPERGLY) 145 mmol/L (136-145); CREATININE 0.82 mg/dL (0.55-1.02); SODIUM 142 mmol/L (136-145); TOTAL PROTEIN 6.7 g/dL (6.4-8.2); eGFR NON BLACK RACES > 60 (>60)
--- NOTE | 2020-05-25 08:19 | PCM.PROG ---
Progress Note Progress Note for Day of Date of Exam: 05/25/20 Subjective Subjective: Pt is a 55 y/o female pmhx HTN, DMT2, admitted for COVID19 pneumonia(05/19). This morning pt is sitting in chair eating breakfast, still on HHF. Reports feeling anxious and short of breath with ambulation. Labs/imaging: Wbc 8, Hgb 12.5, Plt 455, Na 142, K 5.2, Cr 0.82, Glucose 206, CRP 69>77. CXR: pending even though done early this morning, read by radiologist still pending late this afternoon despite contacting radiology department. Treatment course includes: IVF, Zosyn, Remdesivir, Bronchodilators, Solumedrol 80mg q8h, Tricor, immune supplements, supplemental O2, I/S, RT, Pneumonia protocol. Pt still requiring heated high flow at 15L/minute FiO2 47%, continue to wean FiO2 as tolerated. Convalescent plasma ordered. Continue to monitor and follow up labs/imaging in the morning. Past Medical Family Social History Past Med/Fam/Surg Hx: No changes since H&P Allergies: Allergies No Known Drug Allergies Allergy (Verified 05/19/20 11:39) Review of Systems ROS: No change since H&P Vital Signs and I&O's Vital Signs: Temperature 97.8 F Pulse Rate 77 Respiratory Rate 24 Blood Pressure 138/83 O2 Sat by Pulse Oximetry 92 Intake and Output: Intake & Output 05/22/20 05/23/20 05/24/20 05/25/20 23:59 23:59 23:59 23:59 Intake Total 2520 / 2520 3815 / 3815 4111 / 4111 491 / 491 Balance 2520 / 2520 3815 / 3815 4111 / 4111 491 / 491 Physical Exam Oriented: Normal Eyes: Normal Ear: Normal Nose: Normal Throat: Normal Respiratory: Diminished and Rales Cardiovascular: Normal : Normal Auscultation: Bowel Sounds: Normal Tenderness: Normal Skin: Normal Musculoskeletal: Normal Psychiatric: Normal Mood Description: Calm Affect: Normal Speech Pattern: Clear and Appropriate Laboratory and Diagnostics Result Diagrams: 05/25/20 05:10 05/25/20 05:10 Labs: Laboratory WBC 8.0 X10^3/uL (3.6-10.0) 05/25/20 05:10 RBC 4.84 X10^6/uL (3.5-5.4) 05/25/20 05:10 Hgb 12.5 g/dL (12.0-16.0) 05/25/20 05:10 Hct 39.4 % (36.0-47.0) 05/25/20 05:10 MCV 81.4 fL (80.0-100.0) 05/25/20 05:10 MCH 25.8 pg (27.0-34.0) L 05/25/20 05:10 MCHC 31.8 g/dL (33.0-35.0) L 05/25/20 05:10 RDW 14.2 % (11.6-16.5) 05/25/20 05:10 Plt Count 455 X10^3/uL (150.0-450.0) H 05/25/20 05:10 Plt Count Comment Increased (ADEQUATE) A 05/25/20 05:10 MPV 7.9 fL (7.4-11.0) 05/25/20 05:10 Neut % (Auto) 84.0 % (42.0-75.0) H 05/25/20 05:10 Lymph % (Auto) 7.8 % (21.0-51.0) L 05/25/20 05:10 [place] % (Auto) 4.0 % (0.0-13.0) 05/25/20 05:10 Eos % (Auto) 4.1 % (0.9-2.9) H 05/25/20 05:10 Baso % (Auto) 0.1 % (0.2-1.0) L 05/25/20 05:10 Neut # (Auto) 6.7 x10^3/uL (2.2-4.8) H 05/25/20 05:10 Lymph # (Auto) 0.6 X10^3/uL (1.3-2.9) L 05/25/20 05:10 [place] # (Auto) 0.3 x10^3/uL (0.3-0.8) 05/25/20 05:10 Eos # (Auto) 0.3 x10^3/uL (0.0-0.2) H 05/25/20 05:10 Baso # (Auto) 0.0 X10^3/uL (0.0-0.1) 05/25/20 05:10 Absolute Nucleated RBC 0.1 /100WBC 05/25/20 05:10 Total Counted 100 05/25/20 05:10 Neutrophils % (Manual) 81 % (39-76) H 05/25/20 05:10 Lymphocytes % (Manual) 19 % (13-43) 05/25/20 05:10 Plt Morphology Comment Normal (NORMAL) 05/25/20 05:10 RBC Morphology Abnormal (NORMAL) A 05/25/20 05:10 Hypochromasia Slight A 05/25/20 05:10 D-Dimer 0.95 ug/ml (0.0-0.57) H* 05/19/20 13:19 Sample Site Lrad 05/21/20 05:39 ABG pH 7.400 (7.35-7.45) 05/21/20 05:39 ABG pCO2 46.0 mmHg (35.0-45.0) H 05/21/20 05:39 ABG pO2 56.0 mmHg (80.0-100.0) L 05/21/20 05:39 ABG HCO3 28.5 mmol/L (22-26) H 05/21/20 05:39 ABG O2 Saturation 89.0 % (90-100) L 05/21/20 05:39 ABG Base Excess 3.1 mmol/L (-2.0-2.0) H 05/21/20 05:39 Tristen Test Pos 05/21/20 05:39 A-a Gradient 143.0 mmHg 05/21/20 05:39 FiO2 36.0 05/21/20 05:39 Blood Gas Comments Kd abg well-mtf 05/21/20 05:39 Sodium 142 mmol/L (136-145) 05/25/20 05:10 Corrected Sodium 145 mmol/L (136-145) 05/25/20 05:10 Potassium 5.2 mmol/L (3.5-5.1) H 05/25/20 05:10 Chloride 106 mmol/L (98-107) 05/25/20 05:10 Carbon Dioxide 28.9 mmol/L (21-32) 05/25/20 05:10 BUN 15 mg/dL (7-18) 05/25/20 05:10 Creatinine 0.82 mg/dL (0.55-1.02) 05/25/20 05:10 Est GFR (MDRD) Af Amer > 60 (>60) 05/25/20 05:10 Est GFR (MDRD) Non-Af > 60 (>60) 05/25/20 05:10 Glucose 206 mg/dL (65-99) H 05/25/20 05:10 POC Glucose (mg/dL) 207 mg/dL (65-99) H 05/25/20 05:10 Calcium 8.5 mg/dL (8.5-10.1) 05/25/20 05:10 Corrected Calcium 9.9 mg/dL (8.5-10.1) 05/25/20 05:10 Ferritin 324 ng/mL (8-252) H 05/23/20 05:15 Total Bilirubin 0.30 mg/dL (0.2-1.0) 05/25/20 05:10 AST 30 Units/L (15-37) 05/25/20 05:10 ALT 20 Units/L (12-78) 05/25/20 05:10 Alkaline Phosphatase 61 Units/L (46-116) 05/25/20 05:10 Creatine Kinase 148 Units/L (26-192) 05/19/20 13:19 CK-MB (CK-2) < 1.0 ng/mL (0-4.0) 05/19/20 13:19 CK/CKMB % Calc 0.7 % (<4) 05/19/20 13:19 Troponin I < 0.02 ng/mL (0-1.5) 05/19/20 13:19 C-Reactive Protein 77.60 mg/L (0-3.0) H 05/25/20 06:15 Total Protein 6.7 g/dL (6.4-8.2) 05/25/20 05:10 Albumin 2.3 g/dL (3.4-5.0) L 05/25/20 05:10 Globulin 4.4 g/dL (2.5-4.5) 05/25/20 05:10 Albumin/Globulin Ratio 0.5 Ratio (1.1-2.1) L 05/25/20 05:10 Amylase 43 Units/L (25-115) 05/19/20 13:19 Lipase 210 Units/L (73-393) 05/19/20 13:19 SARS-CoV-2 (PCR) Positive (NEGATIVE) A 05/19/20 17:34 Blood Type B POSITIVE 05/24/20 20:12 Plan (1) Pneumonia due to 2019 novel coronavirus: Status: Acute Plan: IVF, REMDESIVIR, ZOSYN, SOLU-MEDROL 80MG IV Q8H, DUONEBS Q4H, PULMICORT NEBS BID, ORDER CONVALESCENT PLASMA (2) Hypoxemia: Status: Acute
[2020-05-25] MEDS ORDERED: TRICOR TAB 160 MG PO SCH (09:00)
[2020-05-25] MEDS: ACTOS PO SCH (09:04)
[2020-05-25] MEDS: GLUCOPHAGE XR 24-HR PO SCH ×2 (09:05→20:56)
[2020-05-25] MEDS: NORVASC TAB 5 MG PO SCH (09:05)
[2020-05-25] MEDS: VITAMIN D3 125 mcg (5,000 UNITS) PO SCH (09:06)
[2020-05-25] MEDS: PEPCID TAB 20 MG PO SCH ×2 (09:06→20:56)
[2020-05-25] MEDS: REMDESIVIR 100 MG in NS 250 ML IV 250 ML IV SCH (09:06)
[2020-05-25] MEDS: PROTONIX INJ 40 MG VIAL IVP SCH (09:06)
[2020-05-25] MEDS: TRICOR TAB 160 MG PO SCH (09:06)
[2020-05-25] MEDS: LOVENOX INJ 30 MG SYR SC SCH ×2 (09:07→20:57)
[2020-05-25] MEDS: VITAMIN A PO SCH (09:07)
[2020-05-25] MEDS: MUCOMYST (RESPIRATORY USE ONLY) NEB SCH ×4 (09:30→21:40)
[2020-05-25] MEDS: PULMICORT NEB TX 0.5 MG NEB SCH ×2 (09:30→21:40)
[2020-05-26] MEDS: DUONEB 0.5 MG/3 MG (3 mL) NEB SCH ×6 (00:27→20:50)
[2020-05-26] MEDS: ASCORBIC ACID INJ MULTI-DOSE VIAL 1,500 MG in NS 100 ML IV 100 ML IV SCH ×4 (02:40→21:30)
[2020-05-26] MEDS: NS 1000 ML 1,000 ML IV SCH ×4 (04:52→19:08)
[2020-05-26] MEDS: SOLU-Medrol 40 MG VIAL IVP SCH ×3 (05:17→21:41)
[2020-05-26] MEDS: ZOSYN VIAL 3.375 GRAMS 3.375 G in NS 100 ML IV + SPIKE MINIBAG* 100 ML IV SCH ×3 (05:18→22:50)
[2020-05-26 05:27] LABS: BASOPHILS % (AUTO) 0.2 % (0.2-1.0); EOSINOPHILS % (AUTO) 0.1 % (0.9-2.9); HEMATOCRIT 39.1 % (36.0-47.0); HEMOGLOBIN 12.5 g/dL (12.0-16.0); LYMPHOCYTES # (AUTO) 0.5 X10^3/uL (1.3-2.9); LYMPHOCYTES % (AUTO) 6.1 % (21.0-51.0); MEAN CORPUSCULAR VOLUME 81.3 fL (80.0-100.0); MEAN PLATELET VOLUME 7.7 fL (7.4-11.0); MONOCYTES # (AUTO) 0.6 x10^3/uL (0.3-0.8); MONOCYTES % (AUTO) 6.5 % (0.0-13.0); NEUTROPHILS # (AUTO) 7.7 x10^3/uL (2.2-4.8); NEUTROPHILS % (AUTO) 87.1 % (42.0-75.0); PLATELET COUNT 355 X10^3/uL (150.0-450.0); RED BLOOD COUNT 4.81 X10^6/uL (3.5-5.4); RED CELL DISTRIBUTION WIDTH 14.4 % (11.6-16.5); WHITE BLOOD COUNT 8.8 X10^3/uL (3.6-10.0)
[2020-05-26] MEDS: HumuLIN R SC PRN ×4 (05:36→21:30)
[2020-05-26 05:45] LABS: ALANINE AMINOTRANSFERASE 22 Units/L (12-78); ALBUMIN 2.4 g/dL (3.4-5.0); ALKALINE PHOSPHATASE 61 Units/L (46-116); ASPARTATE AMINO TRANSFERASE 25 Units/L (15-37); BLOOD UREA NITROGEN 17 mg/dL (7-18); CALCIUM 8.6 mg/dL (8.5-10.1); CARBON DIOXIDE 26.7 mmol/L (21-32); CHLORIDE 107 mmol/L (98-107); COR CA(FOR HYPOALB) 9.9 mg/dL (8.5-10.1); CREATININE 0.96 mg/dL (0.55-1.02); SODIUM 143 mmol/L (136-145); TOTAL PROTEIN 6.9 g/dL (6.4-8.2); eGFR NON BLACK RACES > 60 (>60)
[2020-05-26 05:52] LABS: COR NA(FOR HYPERGLY) 146 mmol/L (136-145)
--- NOTE | 2020-05-26 06:08 | RAD ---
HISTORYFollow-up pneumoniaSTUDYChest AP [id number]/01/2020FINDINGSThe heart is enlarged. Pulmonary venous congestion is present. Right basilar lung infiltrate remains. No definite left lung infiltrate is identified. No pleural effusions are identified. Bony thorax is unremarkable.IMPRESSIONCardiomegaly with pulmonary venous congestionRight basilar infiltrate unchangedLeft lung now clearElectronically signed by: CHERISE DIXON (May 26, 2020 06:06:50)
--- NOTE | 2020-05-26 07:21 | RAD ---
HISTORYPNEUMONIASTUDYCHEST, 1 [id number]/30/2020TECHNIQUEAP view of the chestFINDINGSCardiac silhouette is stably enlarged. Low lung volumes with stable lower lung predominant airspace disease. No large pleural effusion. No pneumothorax.IMPRESSIONNo significant change.Electronically signed by: Dion Kamara (May 25, 2020 06:18:03)
[2020-05-26] MEDS ORDERED: LASIX IVP ONE (08:11)
--- NOTE | 2020-05-26 08:13 | PCM.PROG ---
Progress Note Progress Note for Day of Date of Exam: 05/26/20 Subjective Subjective: Pt is a 55 y/o female pmhx HTN, DMT2, admitted for COVID19 pneumonia(05/19). This morning pt is sitting in chair, she is on heated high flow. Reports feeling better this morning than yesterday. Labs/imaging: Wbc 8.8, Hgb 12.5, Plt 355, Na 143, K 4.6, Cr 0.96, Glucose 218, CRP 77>41. CXR: Car diomegaly with pulmonary venous congestion. Right basilar infiltrate unchanged. Left lung now clear. Treatment course includes: IVF, Zosyn, Remdesivir, Bronchodilators, Solumedrol 80mg q8h, Tricor, immune supplements, supplemental O2, I/S, RT, Pneumonia protocol. Pt is requiring heated high flow that is now reduced to 4L@FiO2 34%, continue to wean FiO2 as tolerated. Pt received convalescent plasma yesterday. Will decrease IVF to KVO and give IV Lasix 40mg x 1 d/t pulmonary venous congestion and lower extremity edema. Continue to monitor and follow up labs/imaging in the morning. Past Medical Family Social History Past Med/Fam/Surg Hx: No changes since H&P Allergies: Allergies No Known Drug Allergies Allergy (Verified 05/19/20 11:39) Review of Systems ROS: No change since H&P Vital Signs and I&O's Vital Signs: Temperature 97.6 F Pulse Rate 84 Respiratory Rate 14 Blood Pressure 131/78 O2 Sat by Pulse Oximetry 96 Intake and Output: Intake & Output 05/23/20 05/24/20 05/25/20 05/26/20 23:59 23:59 23:59 23:59 Intake Total 3815 / 3815 4111 / 4111 2803 / 2803 661 / 661 Balance 3815 / 3815 4111 / 4111 2803 / 2803 661 / 661 Physical Exam Oriented: Normal Eyes: Normal Ear: Normal Nose: Normal Throat: Normal Respiratory: Diminished and Rales Cardiovascular: Normal : Normal Auscultation: Bowel Sounds: Normal Tenderness: Normal Skin: Normal Musculoskeletal: Normal Psychiatric: Normal Mood Description: Calm Affect: Normal Speech Pattern: Clear and Appropriate Laboratory and Diagnostics Result Diagrams: 05/26/20 05:05 05/26/20 05:05 Labs: Laboratory WBC 8.8 X10^3/uL (3.6-10.0) 05/26/20 05:05 RBC 4.81 X10^6/uL (3.5-5.4) 05/26/20 05:05 Hgb 12.5 g/dL (12.0-16.0) 05/26/20 05:05 Hct 39.1 % (36.0-47.0) 05/26/20 05:05 MCV 81.3 fL (80.0-100.0) 05/26/20 05:05 MCH 26.0 pg (27.0-34.0) L 05/26/20 05:05 MCHC 32.0 g/dL (33.0-35.0) L 05/26/20 05:05 RDW 14.4 % (11.6-16.5) 05/26/20 05:05 Plt Count 355 X10^3/uL (150.0-450.0) 05/26/20 05:05 Plt Count Comment Increased (ADEQUATE) A 05/25/20 05:10 MPV 7.7 fL (7.4-11.0) 05/26/20 05:05 Neut % (Auto) 87.1 % (42.0-75.0) H 05/26/20 05:05 Lymph % (Auto) 6.1 % (21.0-51.0) L 05/26/20 05:05 [place] % (Auto) 6.5 % (0.0-13.0) 05/26/20 05:05 Eos % (Auto) 0.1 % (0.9-2.9) L 05/26/20 05:05 Baso % (Auto) 0.2 % (0.2-1.0) 05/26/20 05:05 Neut # (Auto) 7.7 x10^3/uL (2.2-4.8) H 05/26/20 05:05 Lymph # (Auto) 0.5 X10^3/uL (1.3-2.9) L 05/26/20 05:05 [place] # (Auto) 0.6 x10^3/uL (0.3-0.8) 05/26/20 05:05 Eos # (Auto) 0.0 x10^3/uL (0.0-0.2) 05/26/20 05:05 Baso # (Auto) 0.0 X10^3/uL (0.0-0.1) 05/26/20 05:05 Absolute Nucleated RBC 0.1 /100WBC 05/26/20 05:05 Total Counted 100 05/25/20 05:10 Neutrophils % (Manual) 81 % (39-76) H 05/25/20 05:10 Lymphocytes % (Manual) 19 % (13-43) 05/25/20 05:10 Plt Morphology Comment Normal (NORMAL) 05/25/20 05:10 RBC Morphology Abnormal (NORMAL) A 05/25/20 05:10 Hypochromasia Slight A 05/25/20 05:10 D-Dimer 0.95 ug/ml (0.0-0.57) H* 05/19/20 13:19 Sample Site Lrad 05/21/20 05:39 ABG pH 7.400 (7.35-7.45) 05/21/20 05:39 ABG pCO2 46.0 mmHg (35.0-45.0) H 05/21/20 05:39 ABG pO2 56.0 mmHg (80.0-100.0) L 05/21/20 05:39 ABG HCO3 28.5 mmol/L (22-26) H 05/21/20 05:39 ABG O2 Saturation 89.0 % (90-100) L 05/21/20 05:39 ABG Base Excess 3.1 mmol/L (-2.0-2.0) H 05/21/20 05:39 Tristen Test Pos 05/21/20 05:39 A-a Gradient 143.0 mmHg 05/21/20 05:39 FiO2 36.0 05/21/20 05:39 Blood Gas Comments Kd abg well-mtf 05/21/20 05:39 Sodium 143 mmol/L (136-145) 05/26/20 05:05 Corrected Sodium 146 mmol/L (136-145) H 05/26/20 05:05 Potassium 4.6 mmol/L (3.5-5.1) 05/26/20 05:05 Chloride 107 mmol/L (98-107) 05/26/20 05:05 Carbon Dioxide 26.7 mmol/L (21-32) 05/26/20 05:05 BUN 17 mg/dL (7-18) 05/26/20 05:05 Creatinine 0.96 mg/dL (0.55-1.02) 05/26/20 05:05 Est GFR (MDRD) Af Amer > 60 (>60) 05/26/20 05:05 Est GFR (MDRD) Non-Af > 60 (>60) 05/26/20 05:05 Glucose 218 mg/dL (65-99) H 05/26/20 05:05 POC Glucose (mg/dL) 192 mg/dL (65-99) H 05/26/20 05:08 Calcium 8.6 mg/dL (8.5-10.1) 05/26/20 05:05 Corrected Calcium 9.9 mg/dL (8.5-10.1) 05/26/20 05:05 Ferritin 324 ng/mL (8-252) H 05/23/20 05:15 Total Bilirubin 0.30 mg/dL (0.2-1.0) 05/26/20 05:05 AST 25 Units/L (15-37) 05/26/20 05:05 ALT 22 Units/L (12-78) 05/26/20 05:05 Alkaline Phosphatase 61 Units/L (46-116) 05/26/20 05:05 Creatine Kinase 148 Units/L (26-192) 05/19/20 13:19 CK-MB (CK-2) < 1.0 ng/mL (0-4.0) 05/19/20 13:19 CK/CKMB % Calc 0.7 % (<4) 05/19/20 13:19 Troponin I < 0.02 ng/mL (0-1.5) 05/19/20 13:19 C-Reactive Protein 41.40 mg/L (0-3.0) H 05/26/20 05:05 Total Protein 6.9 g/dL (6.4-8.2) 05/26/20 05:05 Albumin 2.4 g/dL (3.4-5.0) L 05/26/20 05:05 Globulin 4.5 g/dL (2.5-4.5) 05/26/20 05:05 Albumin/Globulin Ratio 0.5 Ratio (1.1-2.1) L 05/26/20 05:05 Amylase 43 Units/L (25-115) 05/19/20 13:19 Lipase 210 Units/L (73-393) 05/19/20 13:19 SARS-CoV-2 (PCR) Positive (NEGATIVE) A 05/19/20 17:34 Blood Type B POSITIVE 05/24/20 20:12 Plan (1) Pneumonia due to 2019 novel coronavirus: Status: Acute Plan: IVF, REMDESIVIR, ZOSYN, SOLU-MEDROL 80MG IV Q8H, DUONEBS Q4H, PULMICORT NEBS BID, CONVALESCENT PLASMA (2) Hypoxemia: Status: Acute
[2020-05-26] MEDS: PEPCID TAB 20 MG PO SCH ×2 (08:34→21:40)
[2020-05-26] MEDS: GLUCOPHAGE XR 24-HR PO SCH ×2 (08:35→21:30)
[2020-05-26] MEDS: NORVASC TAB 5 MG PO SCH (08:35)
[2020-05-26] MEDS: VITAMIN D3 125 mcg (5,000 UNITS) PO SCH (08:35)
[2020-05-26] MEDS: LOVENOX INJ 30 MG SYR SC SCH ×2 (08:37→21:39)
[2020-05-26] MEDS: ACTOS PO SCH (08:39)
[2020-05-26] MEDS: VITAMIN A PO SCH (08:40)
[2020-05-26] MEDS: PROTONIX INJ 40 MG VIAL IVP SCH (08:40)
[2020-05-26] MEDS: TRICOR TAB 160 MG PO SCH (08:40)
[2020-05-26] MEDS: REMDESIVIR 100 MG in NS 250 ML IV 250 ML IV SCH (08:51)
[2020-05-26] MEDS: PULMICORT NEB TX 0.5 MG NEB SCH ×2 (09:50→20:50)
[2020-05-26] MEDS: MUCOMYST (RESPIRATORY USE ONLY) NEB SCH ×4 (09:50→20:50)
[2020-05-27] MEDS: DUONEB 0.5 MG/3 MG (3 mL) NEB SCH ×6 (00:35→21:40)
[2020-05-27] MEDS: ASCORBIC ACID INJ MULTI-DOSE VIAL 1,500 MG in NS 100 ML IV 100 ML IV SCH ×4 (02:49→21:26)
[2020-05-27] MEDS: NS 1000 ML 1,000 ML IV SCH ×3 (03:53→21:02)
[2020-05-27 05:38] LABS: BASOPHILS % (AUTO) 0.2 % (0.2-1.0); EOSINOPHILS % (AUTO) 0.1 % (0.9-2.9); HEMATOCRIT 38.3 % (36.0-47.0); HEMOGLOBIN 12.1 g/dL (12.0-16.0); LYMPHOCYTES # (AUTO) 0.3 X10^3/uL (1.3-2.9); LYMPHOCYTES % (AUTO) 3.1 % (21.0-51.0); MEAN CORPUSCULAR HEMOGLOBIN 25.9 pg (27.0-34.0); MEAN CORPUSCULAR HGB CONC 31.6 g/dL (33.0-35.0); MEAN CORPUSCULAR VOLUME 81.9 fL (80.0-100.0); MEAN PLATELET VOLUME 7.8 fL (7.4-11.0); MONOCYTES # (AUTO) 0.7 x10^3/uL (0.3-0.8); MONOCYTES % (AUTO) 7.2 % (0.0-13.0); NEUTROPHILS # (AUTO) 8.3 x10^3/uL (2.2-4.8); NEUTROPHILS % (AUTO) 89.4 % (42.0-75.0); PLATELET COUNT 549 X10^3/uL (150.0-450.0); RED BLOOD COUNT 4.68 X10^6/uL (3.5-5.4); RED CELL DISTRIBUTION WIDTH 14.7 % (11.6-16.5); WHITE BLOOD COUNT 9.3 X10^3/uL (3.6-10.0)
[2020-05-27 05:51] LABS: ALANINE AMINOTRANSFERASE 20 Units/L (12-78); ALBUMIN 2.5 g/dL (3.4-5.0); ALKALINE PHOSPHATASE 56 Units/L (46-116); ASPARTATE AMINO TRANSFERASE 19 Units/L (15-37); BLOOD UREA NITROGEN 22 mg/dL (7-18); CALCIUM 8.7 mg/dL (8.5-10.1); CARBON DIOXIDE 29.2 mmol/L (21-32); CHLORIDE 107 mmol/L (98-107); COR CA(FOR HYPOALB) 9.9 mg/dL (8.5-10.1); COR NA(FOR HYPERGLY) 147 mmol/L (136-145); CREATININE 1.06 mg/dL (0.55-1.02); SODIUM 144 mmol/L (136-145); TOTAL PROTEIN 6.8 g/dL (6.4-8.2); eGFR NON BLACK RACES 57 (>60)
[2020-05-27] MEDS: SOLU-Medrol 40 MG VIAL IVP SCH ×3 (06:07→21:26)
[2020-05-27] MEDS: ZOSYN VIAL 3.375 GRAMS 3.375 G in NS 100 ML IV + SPIKE MINIBAG* 100 ML IV SCH (06:08)
[2020-05-27] MEDS: HumuLIN R SC PRN ×4 (06:09→21:38)
[2020-05-27 06:15] LABS: HYPOCHROMASIA SLIGHT; PLATELET MORPHOLOGY COMMENT NORMAL (NORMAL)
[2020-05-27] MEDS: PEPCID TAB 20 MG PO SCH ×2 (08:30→21:28)
[2020-05-27] MEDS: PROTONIX INJ 40 MG VIAL IVP SCH (08:30)
[2020-05-27] MEDS: NORVASC TAB 5 MG PO SCH (08:30)
[2020-05-27] MEDS: GLUCOPHAGE XR 24-HR PO SCH ×2 (08:31→21:27)
[2020-05-27] MEDS: VITAMIN D3 125 mcg (5,000 UNITS) PO SCH (08:33)
[2020-05-27] MEDS: ACTOS PO SCH (08:34)
[2020-05-27] MEDS: TRICOR TAB 160 MG PO SCH (08:34)
[2020-05-27] MEDS: VITAMIN A PO SCH (08:35)
[2020-05-27] MEDS: LOVENOX INJ 30 MG SYR SC SCH ×2 (08:45→21:27)
[2020-05-27] MEDS: MUCOMYST (RESPIRATORY USE ONLY) NEB SCH ×4 (09:25→21:40)
[2020-05-27] MEDS: PULMICORT NEB TX 0.5 MG NEB SCH ×2 (09:25→21:40)
--- NOTE | 2020-05-27 11:58 | PCM.PROG ---
Progress Note Progress Note for Day of Date of Exam: 05/27/20 Subjective Subjective: Pt is a 55 y/o female pmhx HTN, DMT2, admitted for COVID19 pneumonia(05/19). Pt reports feeling better this morning. Her oxygen was able to be weaned down from heated high flow to 4L nc. Labs/imaging: Wbc 9.3, Hgb 12.1, Plt 549, Na 144, K 4.6, Cr 1.06, Glucose 198, CRP 41>22.3. Treatment course includes: IVF, Zosyn, Remdesivir, Bronchodilators, Solumedrol 80mg q8h, Tricor, immune supplements, supplemental O2, I/S, RT, Pneumonia protocol, Convalescent plasma(05/25). Will stop Zosyn, decrease Solumedrol to 80mg Q12h, d/c Remdesivir(has received 6 doses). Wean O2 as tolerated. Continue to monitor and follow up labs/imaging in the morning. Past Medical Family Social History Past Med/Fam/Surg Hx: No changes since H&P Allergies: Allergies No Known Drug Allergies Allergy (Verified 05/19/20 11:39) Review of Systems ROS: No change since H&P Vital Signs and I&O's Vital Signs: Temperature 98 F Pulse Rate 85 Respiratory Rate 13 Blood Pressure 137/76 O2 Sat by Pulse Oximetry 97 Intake and Output: Intake & Output 05/24/20 05/25/20 05/26/20 05/27/20 23:59 23:59 23:59 23:59 Intake Total 4111 / 4111 2803 / 2803 3971 / 3971 820 / 820 Output Total 1999 200 / 200 Balance 4111 / 4111 2803 / 2803 1970 / 1970 620 / 620 Physical Exam Oriented: Normal Eyes: Normal Ear: Normal Nose: Normal Throat: Normal Respiratory: Diminished Cardiovascular: Normal : Normal Auscultation: Bowel Sounds: Normal Tenderness: Normal Skin: Normal Musculoskeletal: Normal Psychiatric: Normal Mood Description: Calm Affect: Normal Speech Pattern: Clear and Appropriate Laboratory and Diagnostics Result Diagrams: 05/27/20 05:05 05/27/20 05:05 Labs: Laboratory WBC 9.3 X10^3/uL (3.6-10.0) 05/27/20 05:05 RBC 4.68 X10^6/uL (3.5-5.4) 05/27/20 05:05 Hgb 12.1 g/dL (12.0-16.0) 05/27/20 05:05 Hct 38.3 % (36.0-47.0) 05/27/20 05:05 MCV 81.9 fL (80.0-100.0) 05/27/20 05:05 MCH 25.9 pg (27.0-34.0) L 05/27/20 05:05 MCHC 31.6 g/dL (33.0-35.0) L 05/27/20 05:05 RDW 14.7 % (11.6-16.5) 05/27/20 05:05 Plt Count 549 X10^3/uL (150.0-450.0) H 05/27/20 05:05 Plt Count Comment Increased (ADEQUATE) A 05/27/20 05:05 MPV 7.8 fL (7.4-11.0) 05/27/20 05:05 Neut % (Auto) 89.4 % (42.0-75.0) H 05/27/20 05:05 Lymph % (Auto) 3.1 % (21.0-51.0) L 05/27/20 05:05 [place] % (Auto) 7.2 % (0.0-13.0) 05/27/20 05:05 Eos % (Auto) 0.1 % (0.9-2.9) L 05/27/20 05:05 Baso % (Auto) 0.2 % (0.2-1.0) 05/27/20 05:05 Neut # (Auto) 8.3 x10^3/uL (2.2-4.8) H 05/27/20 05:05 Lymph # (Auto) 0.3 X10^3/uL (1.3-2.9) L 05/27/20 05:05 [place] # (Auto) 0.7 x10^3/uL (0.3-0.8) 05/27/20 05:05 Eos # (Auto) 0.0 x10^3/uL (0.0-0.2) 05/27/20 05:05 Baso # (Auto) 0.0 X10^3/uL (0.0-0.1) 05/27/20 05:05 Absolute Nucleated RBC 0.1 /100WBC 05/27/20 05:05 Total Counted 100 05/25/20 05:10 Neutrophils % (Manual) 81 % (39-76) H 05/25/20 05:10 Lymphocytes % (Manual) 19 % (13-43) 05/25/20 05:10 Plt Morphology Comment Normal (NORMAL) 05/27/20 05:05 RBC Morphology Abnormal (NORMAL) A 05/27/20 05:05 Hypochromasia Slight A 05/27/20 05:05 D-Dimer 0.95 ug/ml (0.0-0.57) H* 05/19/20 13:19 Sample Site Lrad 05/21/20 05:39 ABG pH 7.400 (7.35-7.45) 05/21/20 05:39 ABG pCO2 46.0 mmHg (35.0-45.0) H 05/21/20 05:39 ABG pO2 56.0 mmHg (80.0-100.0) L 05/21/20 05:39 ABG HCO3 28.5 mmol/L (22-26) H 05/21/20 05:39 ABG O2 Saturation 89.0 % (90-100) L 05/21/20 05:39 ABG Base Excess 3.1 mmol/L (-2.0-2.0) H 05/21/20 05:39 Tristen Test Pos 05/21/20 05:39 A-a Gradient 143.0 mmHg 05/21/20 05:39 FiO2 36.0 05/21/20 05:39 Blood Gas Comments Kd abg well-mtf 05/21/20 05:39 Sodium 144 mmol/L (136-145) 05/27/20 05:05 Corrected Sodium 147 mmol/L (136-145) H 05/27/20 05:05 Potassium 4.6 mmol/L (3.5-5.1) 05/27/20 05:05 Chloride 107 mmol/L (98-107) 05/27/20 05:05 Carbon Dioxide 29.2 mmol/L (21-32) 05/27/20 05:05 BUN 22 mg/dL (7-18) H 05/27/20 05:05 Creatinine 1.06 mg/dL (0.55-1.02) H 05/27/20 05:05 Est GFR (MDRD) Af Amer > 60 (>60) 05/27/20 05:05 Est GFR (MDRD) Non-Af 57 (>60) L 05/27/20 05:05 Glucose 218 mg/dL (65-99) H 05/27/20 05:05 POC Glucose (mg/dL) 194 mg/dL (65-99) H 05/27/20 11:10 Calcium 8.7 mg/dL (8.5-10.1) 05/27/20 05:05 Corrected Calcium 9.9 mg/dL (8.5-10.1) 05/27/20 05:05 Ferritin 324 ng/mL (8-252) H 05/23/20 05:15 Total Bilirubin 0.30 mg/dL (0.2-1.0) 05/27/20 05:05 AST 19 Units/L (15-37) 05/27/20 05:05 ALT 20 Units/L (12-78) 05/27/20 05:05 Alkaline Phosphatase 56 Units/L (46-116) 05/27/20 05:05 Creatine Kinase 148 Units/L (26-192) 05/19/20 13:19 CK-MB (CK-2) < 1.0 ng/mL (0-4.0) 05/19/20 13:19 CK/CKMB % Calc 0.7 % (<4) 05/19/20 13:19 Troponin I < 0.02 ng/mL (0-1.5) 05/19/20 13:19 C-Reactive Protein 22.30 mg/L (0-3.0) H 05/27/20 05:15 Total Protein 6.8 g/dL (6.4-8.2) 05/27/20 05:05 Albumin 2.5 g/dL (3.4-5.0) L 05/27/20 05:05 Globulin 4.3 g/dL (2.5-4.5) 05/27/20 05:05 Albumin/Globulin Ratio 0.6 Ratio (1.1-2.1) L 05/27/20 05:05 Amylase 43 Units/L (25-115) 05/19/20 13:19 Lipase 210 Units/L (73-393) 05/19/20 13:19 SARS-CoV-2 (PCR) Positive (NEGATIVE) A 05/19/20 17:34 Blood Type B POSITIVE 05/24/20 20:12 Plan (1) Pneumonia due to 2019 novel coronavirus: Status: Acute Plan: IVF, REMDESIVIR(COMPLETED 6 DOSES), SOLU-MEDROL 80MG IV Q12H, DUONEBS Q4H, PULMICORT NEBS BID, CONVALESCENT PLASMA (2) Hypoxemia: Status: Acute
[2020-05-28] MEDS: DUONEB 0.5 MG/3 MG (3 mL) NEB SCH ×6 (01:05→21:26)
[2020-05-28] MEDS: ASCORBIC ACID INJ MULTI-DOSE VIAL 1,500 MG in NS 100 ML IV 100 ML IV SCH ×4 (03:30→20:09)
[2020-05-28] MEDS: NS 1000 ML 1,000 ML IV SCH ×3 (04:40→20:08)
[2020-05-28 05:12] LABS: BASOPHILS % (AUTO) 0 % (0.2-1.0); HEMATOCRIT 37.2 % (36.0-47.0); LYMPHOCYTES # (AUTO) 0.4 X10^3/uL (1.3-2.9); MEAN CORPUSCULAR HGB CONC 32.4 g/dL (33.0-35.0); MEAN CORPUSCULAR VOLUME 80.4 fL (80.0-100.0); MEAN PLATELET VOLUME 7.2 fL (7.4-11.0); MONOCYTES # (AUTO) 0.7 x10^3/uL (0.3-0.8); MONOCYTES % (AUTO) 7.3 % (0.0-13.0); NEUTROPHILS # (AUTO) 8.2 x10^3/uL (2.2-4.8); NEUTROPHILS % (AUTO) 88.7 % (42.0-75.0); PLATELET COUNT 510 X10^3/uL (150.0-450.0); RED BLOOD COUNT 4.63 X10^6/uL (3.5-5.4); RED CELL DISTRIBUTION WIDTH 14.6 % (11.6-16.5); WHITE BLOOD COUNT 9.2 X10^3/uL (3.6-10.0)
[2020-05-28 05:25] LABS: ALANINE AMINOTRANSFERASE 21 Units/L (12-78); ALBUMIN 2.6 g/dL (3.4-5.0); ALKALINE PHOSPHATASE 55 Units/L (46-116); ASPARTATE AMINO TRANSFERASE 16 Units/L (15-37); BLOOD UREA NITROGEN 25 mg/dL (7-18); CALCIUM 8.6 mg/dL (8.5-10.1); CARBON DIOXIDE 29.3 mmol/L (21-32); CHLORIDE 107 mmol/L (98-107); COR CA(FOR HYPOALB) 9.7 mg/dL (8.5-10.1); COR NA(FOR HYPERGLY) 148 mmol/L (136-145); SODIUM 145 mmol/L (136-145); TOTAL PROTEIN 6.4 g/dL (6.4-8.2); eGFR NON BLACK RACES 55 (>60)
[2020-05-28] MEDS: HumuLIN R SC PRN ×2 (06:24→20:28)
[2020-05-28] MEDS ORDERED: PREDNISONE TAB 20 MG PO SCH (09:00)
[2020-05-28] MEDS: MUCOMYST (RESPIRATORY USE ONLY) NEB SCH ×4 (09:14→21:26)
[2020-05-28] MEDS: PULMICORT NEB TX 0.5 MG NEB SCH ×2 (09:14→21:26)
[2020-05-28] MEDS: ACTOS PO SCH (09:56)
[2020-05-28] MEDS: GLUCOPHAGE XR 24-HR PO SCH ×2 (09:56→20:27)
[2020-05-28] MEDS: NORVASC TAB 5 MG PO SCH (09:57)
[2020-05-28] MEDS: LOVENOX INJ 30 MG SYR SC SCH ×2 (09:57→20:09)
[2020-05-28] MEDS: PROTONIX INJ 40 MG VIAL IVP SCH (09:58)
[2020-05-28] MEDS: PEPCID TAB 20 MG PO SCH ×2 (09:58→20:28)
[2020-05-28] MEDS: VITAMIN D3 125 mcg (5,000 UNITS) PO SCH (10:00)
[2020-05-28] MEDS: VITAMIN A PO SCH (10:00)
[2020-05-28] MEDS: TRICOR TAB 160 MG PO SCH (10:17)
--- NOTE | 2020-05-28 11:50 | PCM.PROG ---
Progress Note Progress Note for Day of Date of Exam: 05/28/20 Subjective Subjective: Pt is a 55 y/o female pmhx HTN, DMT2, admitted for COVID19 pneumonia(05/19). Pt is doing better this morning. Her oxygen was able to be weaned down from 4L to 2L nc. Labs/imaging: Wbc 9.2, Hgb 12, Plt 510, Na 145, K 4.1, Cr 1.1, Glucose 155, CRP 22.3>12.6. Treatment course includes: IVF, Zosyn, Remdesivir(received 6 doses), Bronchodilators, Solumedrol 80mg q12h, Tricor, immune supplements, supplemental O2, I/S, RT, Pneumonia protocol, Convalescent plasma(05/25). Will d/c solumedrol and give prednisone 40mg x1 dose. Wean O2 as tolerated. Continue to monitor and follow up labs/imaging in the morning. Past Medical Family Social History Past Med/Fam/Surg Hx: No changes since H&P Allergies: Allergies No Known Drug Allergies Allergy (Verified 05/19/20 11:39) Review of Systems ROS: No change since H&P Vital Signs and I&O's Vital Signs: Temperature 98.2 F Pulse Rate 95 Respiratory Rate 23 Blood Pressure 137/69 O2 Sat by Pulse Oximetry 69 Intake and Output: Intake & Output 05/25/20 05/26/20 05/27/20 05/28/20 23:59 23:59 23:59 23:59 Intake Total 2803 / 2803 3971 / 3971 4440 / 4440 510 / 510 Output Total 1999 / 1999 3050 / 3050 600 / 600 Balance 2803 / 2803 1970 / 1970 1390 / 1390 -90 / -90 Physical Exam Oriented: Normal Eyes: Normal Ear: Normal Nose: Normal Throat: Normal Respiratory: Diminished Cardiovascular: Normal : Normal Auscultation: Bowel Sounds: Normal Tenderness: Normal Skin: Normal Musculoskeletal: Normal Psychiatric: Normal Mood Description: Calm Affect: Normal Speech Pattern: Clear and Appropriate Laboratory and Diagnostics Result Diagrams: 05/29/20 05:45 05/29/20 05:45 Labs: Laboratory WBC 9.2 X10^3/uL (3.6-10.0) 05/28/20 04:50 RBC 4.63 X10^6/uL (3.5-5.4) 05/28/20 04:50 Hgb 12.0 g/dL (12.0-16.0) 05/28/20 04:50 Hct 37.2 % (36.0-47.0) 05/28/20 04:50 MCV 80.4 fL (80.0-100.0) 05/28/20 04:50 MCH 26.0 pg (27.0-34.0) L 05/28/20 04:50 MCHC 32.4 g/dL (33.0-35.0) L 05/28/20 04:50 RDW 14.6 % (11.6-16.5) 05/28/20 04:50 Plt Count 510 X10^3/uL (150.0-450.0) H 05/28/20 04:50 Plt Count Comment Increased (ADEQUATE) A 05/27/20 05:05 MPV 7.2 fL (7.4-11.0) L 05/28/20 04:50 Neut % (Auto) 88.7 % (42.0-75.0) H 05/28/20 04:50 Lymph % (Auto) 4.0 % (21.0-51.0) L 05/28/20 04:50 [place] % (Auto) 7.3 % (0.0-13.0) 05/28/20 04:50 Eos % (Auto) 0.0 % (0.9-2.9) L 05/28/20 04:50 Baso % (Auto) 0 % (0.2-1.0) L 05/28/20 04:50 Neut # (Auto) 8.2 x10^3/uL (2.2-4.8) H 05/28/20 04:50 Lymph # (Auto) 0.4 X10^3/uL (1.3-2.9) L 05/28/20 04:50 [place] # (Auto) 0.7 x10^3/uL (0.3-0.8) 05/28/20 04:50 Eos # (Auto) 0.0 x10^3/uL (0.0-0.2) 05/28/20 04:50 Baso # (Auto) 0.0 X10^3/uL (0.0-0.1) 05/28/20 04:50 Absolute Nucleated RBC 0.0 /100WBC 05/28/20 04:50 Total Counted 100 05/25/20 05:10 Neutrophils % (Manual) 81 % (39-76) H 05/25/20 05:10 Lymphocytes % (Manual) 19 % (13-43) 05/25/20 05:10 Plt Morphology Comment Normal (NORMAL) 05/27/20 05:05 RBC Morphology Abnormal (NORMAL) A 05/27/20 05:05 Hypochromasia Slight A 05/27/20 05:05 D-Dimer 0.95 ug/ml (0.0-0.57) H* 05/19/20 13:19 Sample Site Lrad 05/21/20 05:39 ABG pH 7.400 (7.35-7.45) 05/21/20 05:39 ABG pCO2 46.0 mmHg (35.0-45.0) H 05/21/20 05:39 ABG pO2 56.0 mmHg (80.0-100.0) L 05/21/20 05:39 ABG HCO3 28.5 mmol/L (22-26) H 05/21/20 05:39 ABG O2 Saturation 89.0 % (90-100) L 05/21/20 05:39 ABG Base Excess 3.1 mmol/L (-2.0-2.0) H 05/21/20 05:39 Tristen Test Pos 05/21/20 05:39 A-a Gradient 143.0 mmHg 05/21/20 05:39 FiO2 36.0 05/21/20 05:39 Blood Gas Comments Kd abg well-mtf 05/21/20 05:39 Sodium 145 mmol/L (136-145) 05/28/20 04:50 Corrected Sodium 148 mmol/L (136-145) H 05/28/20 04:50 Potassium 4.1 mmol/L (3.5-5.1) 05/28/20 04:50 Chloride 107 mmol/L (98-107) 05/28/20 04:50 Carbon Dioxide 29.3 mmol/L (21-32) 05/28/20 04:50 BUN 25 mg/dL (7-18) H 05/28/20 04:50 Creatinine 1.10 mg/dL (0.55-1.02) H 05/28/20 04:50 Est GFR (MDRD) Af Amer > 60 (>60) 05/28/20 04:50 Est GFR (MDRD) Non-Af 55 (>60) L 05/28/20 04:50 Glucose 222 mg/dL (65-99) H 05/28/20 04:50 POC Glucose (mg/dL) 223 mg/dL (65-99) H 05/27/20 21:20 Calcium 8.6 mg/dL (8.5-10.1) 05/28/20 04:50 Corrected Calcium 9.7 mg/dL (8.5-10.1) 05/28/20 04:50 Ferritin 324 ng/mL (8-252) H 05/23/20 05:15 Total Bilirubin 0.30 mg/dL (0.2-1.0) 05/28/20 04:50 AST 16 Units/L (15-37) 05/28/20 04:50 ALT 21 Units/L (12-78) 05/28/20 04:50 Alkaline Phosphatase 55 Units/L (46-116) 05/28/20 04:50 Creatine Kinase 148 Units/L (26-192) 05/19/20 13:19 CK-MB (CK-2) < 1.0 ng/mL (0-4.0) 05/19/20 13:19 CK/CKMB % Calc 0.7 % (<4) 05/19/20 13:19 Troponin I < 0.02 ng/mL (0-1.5) 05/19/20 13:19 C-Reactive Protein 12.60 mg/L (0-3.0) H 05/28/20 04:50 Total Protein 6.4 g/dL (6.4-8.2) 05/28/20 04:50 Albumin 2.6 g/dL (3.4-5.0) L 05/28/20 04:50 Globulin 3.8 g/dL (2.5-4.5) 05/28/20 04:50 Albumin/Globulin Ratio 0.7 Ratio (1.1-2.1) L 05/28/20 04:50 Amylase 43 Units/L (25-115) 05/19/20 13:19 Lipase 210 Units/L (73-393) 05/19/20 13:19 SARS-CoV-2 (PCR) Positive (NEGATIVE) A 05/19/20 17:34 Blood Type B POSITIVE 05/24/20 20:12 Plan (1) Pneumonia due to 2019 novel coronavirus: Status: Acute Plan: IVF, REMDESIVIR(COMPLETED 6 DOSES), PREDNISONE 40MG X1, DUONEBS Q4H, PULMICORT NEBS BID, CONVALESCENT PLASMA (2) Hypoxemia: Status: Acute
[2020-05-29] MEDS: DUONEB 0.5 MG/3 MG (3 mL) NEB SCH ×6 (01:40→21:40)
[2020-05-29] MEDS: ASCORBIC ACID INJ MULTI-DOSE VIAL 1,500 MG in NS 100 ML IV 100 ML IV SCH ×4 (02:55→21:00)
[2020-05-29] MEDS: NS 1000 ML 1,000 ML IV SCH ×3 (02:55→21:00)
[2020-05-29] MEDS: HumuLIN R SC PRN (05:57)
[2020-05-29 05:58] LABS: BASOPHILS % (AUTO) 0.5 % (0.2-1.0); HEMATOCRIT 38.4 % (36.0-47.0); HEMOGLOBIN 12.4 g/dL (12.0-16.0); LYMPHOCYTES # (AUTO) 0.9 X10^3/uL (1.3-2.9); LYMPHOCYTES % (AUTO) 8.8 % (21.0-51.0); MEAN CORPUSCULAR HEMOGLOBIN 26.1 pg (27.0-34.0); MEAN CORPUSCULAR HGB CONC 32.2 g/dL (33.0-35.0); MEAN CORPUSCULAR VOLUME 81.1 fL (80.0-100.0); MONOCYTES # (AUTO) 1.3 x10^3/uL (0.3-0.8); MONOCYTES % (AUTO) 12.7 % (0.0-13.0); PLATELET COUNT 503 X10^3/uL (150.0-450.0); RED BLOOD COUNT 4.74 X10^6/uL (3.5-5.4); RED CELL DISTRIBUTION WIDTH 14.7 % (11.6-16.5); WHITE BLOOD COUNT 10.3 X10^3/uL (3.6-10.0)
[2020-05-29 06:07] LABS: ALANINE AMINOTRANSFERASE 22 Units/L (12-78); ALBUMIN 2.7 g/dL (3.4-5.0); ALKALINE PHOSPHATASE 53 Units/L (46-116); ASPARTATE AMINO TRANSFERASE 24 Units/L (15-37); BLOOD UREA NITROGEN 23 mg/dL (7-18); CALCIUM 8.7 mg/dL (8.5-10.1); CARBON DIOXIDE 27.1 mmol/L (21-32); CHLORIDE 106 mmol/L (98-107); COR CA(FOR HYPOALB) 9.7 mg/dL (8.5-10.1); COR NA(FOR HYPERGLY) 143 mmol/L (136-145); CREATININE 0.98 mg/dL (0.55-1.02); SODIUM 141 mmol/L (136-145); TOTAL PROTEIN 6.6 g/dL (6.4-8.2); eGFR NON BLACK RACES > 60 (>60)
[2020-05-29 06:23] LABS: BASOPHILS % (MANUAL) 1 % (0-1)
[2020-05-29 06:24] LABS: PLATELET MORPHOLOGY COMMENT NORMAL (NORMAL)
[2020-05-29] MEDS: ACTOS PO SCH (08:56)
[2020-05-29] MEDS: GLUCOPHAGE XR 24-HR PO SCH ×2 (08:58→21:00)
[2020-05-29] MEDS: TRICOR TAB 160 MG PO SCH (08:58)
[2020-05-29] MEDS: NORVASC TAB 5 MG PO SCH (08:58)
[2020-05-29] MEDS: PROTONIX INJ 40 MG VIAL IVP SCH (08:59)
[2020-05-29] MEDS: PEPCID TAB 20 MG PO SCH ×2 (08:59→21:00)
[2020-05-29] MEDS: VITAMIN D3 125 mcg (5,000 UNITS) PO SCH (08:59)
[2020-05-29] MEDS: PULMICORT NEB TX 0.5 MG NEB SCH ×2 (09:00→21:40)
[2020-05-29] MEDS: MUCOMYST (RESPIRATORY USE ONLY) NEB SCH ×4 (09:00→21:40)
[2020-05-29] MEDS: VITAMIN A PO SCH (09:00)
[2020-05-29] MEDS: LOVENOX INJ 30 MG SYR SC SCH ×2 (09:00→21:05)
--- NOTE | 2020-05-29 11:46 | PCM.PROG ---
Progress Note Progress Note for Day of Date of Exam: 05/29/20 Subjective Subjective: Pt is a 55 y/o female pmhx HTN, DMT2, admitted for COVID19 pneumonia(05/19). Pt is sitting in chair this morning currently on 2L nc. Labs/imaging: Wbc 10.3, Hgb 12.4, Plt 503, Na 141, K 4.1, Cr 0.98, Glucose 189. Treatment course includes: IVF, Zosyn(d/c), Remdesivir (received 6 doses), Bron chodilators, Tricor, immune supplements, supplemental O2, I/S, RT, Pneumonia protocol, Convalescent plasma(05/25). This morning removed supplemental O2 and had patient briefly ambulate, pulse ox O2 sat immediately started to dip into the mid to low 80s. After patient sat back in chair and supplemental O2 of 2L nc provided, her O2 sats rapidly recovered back in mid 90s. Will likely need home O2 if to be discharged. Will try to arrange if possible. Continue to monitor and follow up labs/imaging in the morning. Past Medical Family Social History Past Med/Fam/Surg Hx: No changes since H&P Allergies: Allergies No Known Drug Allergies Allergy (Verified 05/19/20 11:39) Review of Systems ROS: No change since H&P Vital Signs and I&O's Vital Signs: Temperature 97.6 F Pulse Rate 90 Respiratory Rate 26 Blood Pressure 118/80 O2 Sat by Pulse Oximetry 95 Intake and Output: Intake & Output 05/26/20 05/27/20 05/28/20 05/29/20 23:59 23:59 23:59 23:59 Intake Total 3971 / 3971 4440 / 4440 3800 / 3800 707 / 707 Output Total 1999 3050 / 3050 600 / 600 Balance 1970 / 1970 1390 / 1390 3200 / 3200 707 / 707 Physical Exam Oriented: Normal Eyes: Normal Ear: Normal Nose: Normal Throat: Normal Respiratory: Diminished Cardiovascular: Normal : Normal Auscultation: Bowel Sounds: Normal Tenderness: Normal Skin: Normal Musculoskeletal: Normal Psychiatric: Normal Mood Description: Calm Affect: Normal Speech Pattern: Clear and Appropriate Laboratory and Diagnostics Result Diagrams: 05/29/20 05:45 05/29/20 05:45 Labs: Laboratory WBC 10.3 X10^3/uL (3.6-10.0) H 05/29/20 05:45 RBC 4.74 X10^6/uL (3.5-5.4) 05/29/20 05:45 Hgb 12.4 g/dL (12.0-16.0) 05/29/20 05:45 Hct 38.4 % (36.0-47.0) 05/29/20 05:45 MCV 81.1 fL (80.0-100.0) 05/29/20 05:45 MCH 26.1 pg (27.0-34.0) L 05/29/20 05:45 MCHC 32.2 g/dL (33.0-35.0) L 05/29/20 05:45 RDW 14.7 % (11.6-16.5) 05/29/20 05:45 Plt Count 503 X10^3/uL (150.0-450.0) H 05/29/20 05:45 Plt Count Comment Increased (ADEQUATE) A 05/29/20 05:45 MPV 7.0 fL (7.4-11.0) L 05/29/20 05:45 Neut % (Auto) 78.0 % (42.0-75.0) H 05/29/20 05:45 Lymph % (Auto) 8.8 % (21.0-51.0) L 05/29/20 05:45 [place] % (Auto) 12.7 % (0.0-13.0) 05/29/20 05:45 Eos % (Auto) 0.0 % (0.9-2.9) L 05/29/20 05:45 Baso % (Auto) 0.5 % (0.2-1.0) 05/29/20 05:45 Neut # (Auto) 8.0 x10^3/uL (2.2-4.8) H 05/29/20 05:45 Lymph # (Auto) 0.9 X10^3/uL (1.3-2.9) L 05/29/20 05:45 [place] # (Auto) 1.3 x10^3/uL (0.3-0.8) H 05/29/20 05:45 Eos # (Auto) 0.0 x10^3/uL (0.0-0.2) 05/29/20 05:45 Baso # (Auto) 0.0 X10^3/uL (0.0-0.1) 05/29/20 05:45 Absolute Nucleated RBC 0.1 /100WBC 05/29/20 05:45 Total Counted 100 05/29/20 05:45 Neutrophils % (Manual) 73 % (39-76) 05/29/20 05:45 Lymphocytes % (Manual) 11 % (13-43) L 05/29/20 05:45 Monocytes % (Manual) 15 % (4-9) H 05/29/20 05:45 Basophils % (Manual) 1 % (0-1) 05/29/20 05:45 Plt Morphology Comment Normal (NORMAL) 05/29/20 05:45 RBC Morphology Normal (NORMAL) 05/29/20 05:45 Hypochromasia Slight A 05/27/20 05:05 D-Dimer 0.95 ug/ml (0.0-0.57) H* 05/19/20 13:19 Sample Site Lrad 05/21/20 05:39 ABG pH 7.400 (7.35-7.45) 05/21/20 05:39 ABG pCO2 46.0 mmHg (35.0-45.0) H 05/21/20 05:39 ABG pO2 56.0 mmHg (80.0-100.0) L 05/21/20 05:39 ABG HCO3 28.5 mmol/L (22-26) H 05/21/20 05:39 ABG O2 Saturation 89.0 % (90-100) L 05/21/20 05:39 ABG Base Excess 3.1 mmol/L (-2.0-2.0) H 05/21/20 05:39 Tristen Test Pos 05/21/20 05:39 A-a Gradient 143.0 mmHg 05/21/20 05:39 FiO2 36.0 05/21/20 05:39 Blood Gas Comments Kd abg well-mtf 05/21/20 05:39 Sodium 141 mmol/L (136-145) 05/29/20 05:45 Corrected Sodium 143 mmol/L (136-145) 05/29/20 05:45 Potassium 4.1 mmol/L (3.5-5.1) 05/29/20 05:45 Chloride 106 mmol/L (98-107) 05/29/20 05:45 Carbon Dioxide 27.1 mmol/L (21-32) 05/29/20 05:45 BUN 23 mg/dL (7-18) H 05/29/20 05:45 Creatinine 0.98 mg/dL (0.55-1.02) 05/29/20 05:45 Est GFR (MDRD) Af Amer > 60 (>60) 05/29/20 05:45 Est GFR (MDRD) Non-Af > 60 (>60) 05/29/20 05:45 Glucose 189 mg/dL (65-99) H 05/29/20 05:45 POC Glucose (mg/dL) 141 mg/dL (65-99) H 05/29/20 11:23 Calcium 8.7 mg/dL (8.5-10.1) 05/29/20 05:45 Corrected Calcium 9.7 mg/dL (8.5-10.1) 05/29/20 05:45 Ferritin 324 ng/mL (8-252) H 05/23/20 05:15 Total Bilirubin 0.30 mg/dL (0.2-1.0) 05/29/20 05:45 AST 24 Units/L (15-37) 05/29/20 05:45 ALT 22 Units/L (12-78) 05/29/20 05:45 Alkaline Phosphatase 53 Units/L (46-116) 05/29/20 05:45 Creatine Kinase 148 Units/L (26-192) 05/19/20 13:19 CK-MB (CK-2) < 1.0 ng/mL (0-4.0) 05/19/20 13:19 CK/CKMB % Calc 0.7 % (<4) 05/19/20 13:19 Troponin I < 0.02 ng/mL (0-1.5) 05/19/20 13:19 C-Reactive Protein 12.60 mg/L (0-3.0) H 05/28/20 04:50 Total Protein 6.6 g/dL (6.4-8.2) 05/29/20 05:45 Albumin 2.7 g/dL (3.4-5.0) L 05/29/20 05:45 Globulin 3.9 g/dL (2.5-4.5) 05/29/20 05:45 Albumin/Globulin Ratio 0.7 Ratio (1.1-2.1) L 05/29/20 05:45 Amylase 43 Units/L (25-115) 05/19/20 13:19 Lipase 210 Units/L (73-393) 05/19/20 13:19 SARS-CoV-2 (PCR) Positive (NEGATIVE) A 05/19/20 17:34 Blood Type B POSITIVE 05/24/20 20:12 Plan (1) Pneumonia due to 2019 novel coronavirus: Status: Acute Plan: IVF, REMDESIVIR(COMPLETED 6 DOSES), PREDNISONE 40MG X1, DUONEBS Q4H, PULMICORT NEBS BID, CONVALESCENT PLASMA (2) Hypoxemia: Status: Acute
[2020-05-30] MEDS: DUONEB 0.5 MG/3 MG (3 mL) NEB SCH ×6 (01:04→21:20)
[2020-05-30] MEDS: ASCORBIC ACID INJ MULTI-DOSE VIAL 1,500 MG in NS 100 ML IV 100 ML IV SCH ×4 (03:30→20:10)
[2020-05-30] MEDS: NS 1000 ML 1,000 ML IV SCH ×3 (03:56→20:10)
[2020-05-30 05:38] LABS: BASOPHILS # (AUTO) 0.1 X10^3/uL (0.0-0.1); BASOPHILS % (AUTO) 0.6 % (0.2-1.0); EOSINOPHILS # (AUTO) 0.2 x10^3/uL (0.0-0.2); EOSINOPHILS % (AUTO) 1.7 % (0.9-2.9); HEMATOCRIT 38.6 % (36.0-47.0); HEMOGLOBIN 12.3 g/dL (12.0-16.0); LYMPHOCYTES # (AUTO) 2.2 X10^3/uL (1.3-2.9); LYMPHOCYTES % (AUTO) 24.8 % (21.0-51.0); MEAN CORPUSCULAR HEMOGLOBIN 25.9 pg (27.0-34.0); MEAN CORPUSCULAR HGB CONC 31.8 g/dL (33.0-35.0); MEAN CORPUSCULAR VOLUME 81.4 fL (80.0-100.0); MONOCYTES # (AUTO) 1.1 x10^3/uL (0.3-0.8); NEUTROPHILS # (AUTO) 5.5 x10^3/uL (2.2-4.8); NEUTROPHILS % (AUTO) 60.9 % (42.0-75.0); PLATELET COUNT 378 X10^3/uL (150.0-450.0); RED BLOOD COUNT 4.74 X10^6/uL (3.5-5.4); RED CELL DISTRIBUTION WIDTH 14.6 % (11.6-16.5)
[2020-05-30 05:39] LABS: ALANINE AMINOTRANSFERASE 22 Units/L (12-78); ALBUMIN 2.6 g/dL (3.4-5.0); ALKALINE PHOSPHATASE 49 Units/L (46-116); ASPARTATE AMINO TRANSFERASE 20 Units/L (15-37); BLOOD UREA NITROGEN 18 mg/dL (7-18); CALCIUM 8.3 mg/dL (8.5-10.1); CARBON DIOXIDE 31.5 mmol/L (21-32); CHLORIDE 106 mmol/L (98-107); COR CA(FOR HYPOALB) 9.4 mg/dL (8.5-10.1); COR NA(FOR HYPERGLY) 146 mmol/L (136-145); SODIUM 145 mmol/L (136-145); TOTAL PROTEIN 6.1 g/dL (6.4-8.2); eGFR NON BLACK RACES > 60 (>60)
[2020-05-30 05:52] LABS: HYPOCHROMASIA SLIGHT; PLATELET MORPHOLOGY COMMENT NORMAL (NORMAL)
[2020-05-30] MEDS: MUCOMYST (RESPIRATORY USE ONLY) NEB SCH ×4 (08:25→21:20)
[2020-05-30] MEDS: PULMICORT NEB TX 0.5 MG NEB SCH ×2 (08:25→21:20)
[2020-05-30] MEDS: LOVENOX INJ 30 MG SYR SC SCH ×2 (08:39→20:10)
[2020-05-30] MEDS: NORVASC TAB 5 MG PO SCH (08:40)
[2020-05-30] MEDS: ACTOS PO SCH (08:41)
[2020-05-30] MEDS: VITAMIN D3 125 mcg (5,000 UNITS) PO SCH (08:41)
[2020-05-30] MEDS: GLUCOPHAGE XR 24-HR PO SCH ×2 (08:41→20:10)
[2020-05-30] MEDS: TRICOR TAB 160 MG PO SCH (08:42)
[2020-05-30] MEDS: VITAMIN A PO SCH (08:42)
[2020-05-30] MEDS: PEPCID TAB 20 MG PO SCH ×2 (09:02→20:10)
--- NOTE | 2020-05-30 11:26 | PCM.PROG ---
Progress Note Progress Note for Day of Date of Exam: 05/30/20 Subjective Subjective: Pt is a 55 y/o female pmhx HTN, DMT2, admitted for COVID19 pneumonia(05/19). Pt is sitting in chair this morning currently on 2L nc. Labs/imaging: Wbc 9, Hgb 12.3, Plt 378, Na 145, K 3.8, Cr 1.0, Glucose 124. Treatment course includes: IVF, Zosyn(d/c), Remdesivir (received 6 doses), Bronchodilators, Tricor, immune supplements, supplemental O2, I/S, RT, Pneumonia protocol, Convalescent plasma(05/25). This morning patient had removed her supplemental O2 and had good oxygenation. Had patient ambulate briefly and sit back down, O2 sats dropped down to mid 80s but then rapidly recovered without supplemental O2 when patient was resting. Pt will likely need home O2 for ambulation when discharged. Will try to arrange if possible. Continue to monitor and follow up labs/imaging in the morning. Past Medical Family Social History Past Med/Fam/Surg Hx: No changes since H&P Allergies: Allergies No Known Drug Allergies Allergy (Verified 05/19/20 11:39) Review of Systems ROS: No change since H&P Vital Signs and I&O's Vital Signs: Temperature 97.6 F Pulse Rate 95 Respiratory Rate 19 Blood Pressure 158/82 O2 Sat by Pulse Oximetry 94 Intake and Output: Intake & Output 05/27/20 05/28/20 05/29/20 05/30/20 23:59 23:59 23:59 23:59 Intake Total 4440 / 4440 3800 / 3800 2982 / 2982 620 / 620 Output Total 3050 / 3050 600 / 600 Balance 1390 / 1390 3200 / 3200 2982 / 2982 620 / 620 Physical Exam Oriented: Normal Eyes: Normal Ear: Normal Nose: Normal Throat: Normal Respiratory: Diminished Cardiovascular: Normal : Normal Auscultation: Bowel Sounds: Normal Tenderness: Normal Skin: Normal Musculoskeletal: Normal Psychiatric: Normal Mood Description: Calm Affect: Normal Speech Pattern: Clear and Appropriate Laboratory and Diagnostics Result Diagrams: 05/30/20 05:10 05/30/20 05:10 Labs: Laboratory WBC 9.0 X10^3/uL (3.6-10.0) 05/30/20 05:10 RBC 4.74 X10^6/uL (3.5-5.4) 05/30/20 05:10 Hgb 12.3 g/dL (12.0-16.0) 05/30/20 05:10 Hct 38.6 % (36.0-47.0) 05/30/20 05:10 MCV 81.4 fL (80.0-100.0) 05/30/20 05:10 MCH 25.9 pg (27.0-34.0) L 05/30/20 05:10 MCHC 31.8 g/dL (33.0-35.0) L 05/30/20 05:10 RDW 14.6 % (11.6-16.5) 05/30/20 05:10 Plt Count 378 X10^3/uL (150.0-450.0) 05/30/20 05:10 Plt Count Comment Adequate (ADEQUATE) 05/30/20 05:10 MPV 8.0 fL (7.4-11.0) 05/30/20 05:10 Neut % (Auto) 60.9 % (42.0-75.0) 05/30/20 05:10 Lymph % (Auto) 24.8 % (21.0-51.0) 05/30/20 05:10 [place] % (Auto) 12.0 % (0.0-13.0) 05/30/20 05:10 Eos % (Auto) 1.7 % (0.9-2.9) 05/30/20 05:10 Baso % (Auto) 0.6 % (0.2-1.0) 05/30/20 05:10 Neut # (Auto) 5.5 x10^3/uL (2.2-4.8) H 05/30/20 05:10 Lymph # (Auto) 2.2 X10^3/uL (1.3-2.9) 05/30/20 05:10 [place] # (Auto) 1.1 x10^3/uL (0.3-0.8) H 05/30/20 05:10 Eos # (Auto) 0.2 x10^3/uL (0.0-0.2) 05/30/20 05:10 Baso # (Auto) 0.1 X10^3/uL (0.0-0.1) 05/30/20 05:10 Absolute Nucleated RBC 0.1 /100WBC 05/30/20 05:10 Total Counted 100 05/29/20 05:45 Neutrophils % (Manual) 73 % (39-76) 05/29/20 05:45 Lymphocytes % (Manual) 11 % (13-43) L 05/29/20 05:45 Monocytes % (Manual) 15 % (4-9) H 05/29/20 05:45 Basophils % (Manual) 1 % (0-1) 05/29/20 05:45 Plt Morphology Comment Normal (NORMAL) 05/30/20 05:10 RBC Morphology Abnormal (NORMAL) A 05/30/20 05:10 Hypochromasia Slight A 05/30/20 05:10 D-Dimer 0.95 ug/ml (0.0-0.57) H* 05/19/20 13:19 Sample Site Lrad 05/21/20 05:39 ABG pH 7.400 (7.35-7.45) 05/21/20 05:39 ABG pCO2 46.0 mmHg (35.0-45.0) H 05/21/20 05:39 ABG pO2 56.0 mmHg (80.0-100.0) L 05/21/20 05:39 ABG HCO3 28.5 mmol/L (22-26) H 05/21/20 05:39 ABG O2 Saturation 89.0 % (90-100) L 05/21/20 05:39 ABG Base Excess 3.1 mmol/L (-2.0-2.0) H 05/21/20 05:39 Tristen Test Pos 05/21/20 05:39 A-a Gradient 143.0 mmHg 05/21/20 05:39 FiO2 36.0 05/21/20 05:39 Blood Gas Comments Kd abg well-mtf 05/21/20 05:39 Sodium 145 mmol/L (136-145) 05/30/20 05:10 Corrected Sodium 146 mmol/L (136-145) H 05/30/20 05:10 Potassium 3.8 mmol/L (3.5-5.1) 05/30/20 05:10 Chloride 106 mmol/L (98-107) 05/30/20 05:10 Carbon Dioxide 31.5 mmol/L (21-32) 05/30/20 05:10 BUN 18 mg/dL (7-18) 05/30/20 05:10 Creatinine 1.00 mg/dL (0.55-1.02) 05/30/20 05:10 Est GFR (MDRD) Af Amer > 60 (>60) 05/30/20 05:10 Est GFR (MDRD) Non-Af > 60 (>60) 05/30/20 05:10 Glucose 124 mg/dL (65-99) H 05/30/20 05:10 POC Glucose (mg/dL) 93 mg/dL (65-99) 05/30/20 11:23 Calcium 8.3 mg/dL (8.5-10.1) L 05/30/20 05:10 Corrected Calcium 9.4 mg/dL (8.5-10.1) 05/30/20 05:10 Ferritin 324 ng/mL (8-252) H 05/23/20 05:15 Total Bilirubin 0.40 mg/dL (0.2-1.0) 05/30/20 05:10 AST 20 Units/L (15-37) 05/30/20 05:10 ALT 22 Units/L (12-78) 05/30/20 05:10 Alkaline Phosphatase 49 Units/L (46-116) 05/30/20 05:10 Creatine Kinase 148 Units/L (26-192) 05/19/20 13:19 CK-MB (CK-2) < 1.0 ng/mL (0-4.0) 05/19/20 13:19 CK/CKMB % Calc 0.7 % (<4) 05/19/20 13:19 Troponin I < 0.02 ng/mL (0-1.5) 05/19/20 13:19 C-Reactive Protein 12.60 mg/L (0-3.0) H 05/28/20 04:50 Total Protein 6.1 g/dL (6.4-8.2) L 05/30/20 05:10 Albumin 2.6 g/dL (3.4-5.0) L 05/30/20 05:10 Globulin 3.5 g/dL (2.5-4.5) 05/30/20 05:10 Albumin/Globulin Ratio 0.7 Ratio (1.1-2.1) L 05/30/20 05:10 Amylase 43 Units/L (25-115) 05/19/20 13:19 Lipase 210 Units/L (73-393) 05/19/20 13:19 SARS-CoV-2 (PCR) Positive (NEGATIVE) A 05/19/20 17:34 Blood Type B POSITIVE 05/24/20 20:12 Plan (1) Pneumonia due to 2019 novel coronavirus: Status: Acute Plan: IVF, REMDESIVIR(COMPLETED 6 DOSES), PREDNISONE 40MG X1, DUONEBS Q4H, PULMICORT NEBS BID, CONVALESCENT PLASMA (2) Hypoxemia: Status: Acute
[2020-05-30] MEDS: PROTONIX INJ 40 MG VIAL IVP SCH (14:50)
[2020-05-31] MEDS: DUONEB 0.5 MG/3 MG (3 mL) NEB SCH ×3 (01:00→08:10)
[2020-05-31] MEDS: ASCORBIC ACID INJ MULTI-DOSE VIAL 1,500 MG in NS 100 ML IV 100 ML IV SCH ×3 (02:30→14:30)
[2020-05-31] MEDS: NS 1000 ML 1,000 ML IV SCH ×2 (03:43→11:35)
[2020-05-31 05:22] LABS: BASOPHILS # (AUTO) 0.1 X10^3/uL (0.0-0.1); BASOPHILS % (AUTO) 0.6 % (0.2-1.0); EOSINOPHILS # (AUTO) 0.2 x10^3/uL (0.0-0.2); EOSINOPHILS % (AUTO) 2.7 % (0.9-2.9); HEMATOCRIT 37.8 % (36.0-47.0); HEMOGLOBIN 11.8 g/dL (12.0-16.0); LYMPHOCYTES # (AUTO) 2.3 X10^3/uL (1.3-2.9); LYMPHOCYTES % (AUTO) 25.8 % (21.0-51.0); MEAN CORPUSCULAR HEMOGLOBIN 25.5 pg (27.0-34.0); MEAN CORPUSCULAR HGB CONC 31.3 g/dL (33.0-35.0); MEAN CORPUSCULAR VOLUME 81.5 fL (80.0-100.0); MEAN PLATELET VOLUME 8.5 fL (7.4-11.0); MONOCYTES # (AUTO) 0.7 x10^3/uL (0.3-0.8); MONOCYTES % (AUTO) 7.6 % (0.0-13.0); NEUTROPHILS # (AUTO) 5.7 x10^3/uL (2.2-4.8); NEUTROPHILS % (AUTO) 63.3 % (42.0-75.0); PLATELET COUNT 348 X10^3/uL (150.0-450.0); RED BLOOD COUNT 4.63 X10^6/uL (3.5-5.4); RED CELL DISTRIBUTION WIDTH 14.6 % (11.6-16.5)
[2020-05-31 05:33] LABS: ALANINE AMINOTRANSFERASE 23 Units/L (12-78); ALBUMIN 2.7 g/dL (3.4-5.0); ALKALINE PHOSPHATASE 46 Units/L (46-116); ASPARTATE AMINO TRANSFERASE 20 Units/L (15-37); BLOOD UREA NITROGEN 15 mg/dL (7-18); CALCIUM 8.4 mg/dL (8.5-10.1); CARBON DIOXIDE 32.8 mmol/L (21-32); CHLORIDE 105 mmol/L (98-107); COR CA(FOR HYPOALB) 9.4 mg/dL (8.5-10.1); CREATININE 0.86 mg/dL (0.55-1.02); SODIUM 144 mmol/L (136-145); TOTAL PROTEIN 6.1 g/dL (6.4-8.2); eGFR NON BLACK RACES > 60 (>60)
[2020-05-31 05:45] LABS: PLATELET MORPHOLOGY COMMENT NORMAL (NORMAL)
[2020-05-31 05:46] LABS: HYPOCHROMASIA SLIGHT
[2020-05-31] MEDS: PULMICORT NEB TX 0.5 MG NEB SCH (08:10)
[2020-05-31] MEDS: MUCOMYST (RESPIRATORY USE ONLY) NEB SCH (08:10)
[2020-05-31] MEDS: ACTOS PO SCH (08:29)
[2020-05-31] MEDS: LOVENOX INJ 30 MG SYR SC SCH (08:30)
[2020-05-31] MEDS: GLUCOPHAGE XR 24-HR PO SCH (08:30)
[2020-05-31] MEDS: NORVASC TAB 5 MG PO SCH (08:31)
[2020-05-31] MEDS: TRICOR TAB 160 MG PO SCH (08:31)
[2020-05-31] MEDS: PEPCID TAB 20 MG PO SCH (08:31)
[2020-05-31] MEDS: VITAMIN A PO SCH (08:32)
[2020-05-31] MEDS: VITAMIN D3 125 mcg (5,000 UNITS) PO SCH (08:32)
--- NOTE | 2020-05-31 08:55 | W.DIS.FURT ---
Summary of Discharge Discharge Summary of Date Date of Exam: 05/31/20 Admission Date Date of Admission: 05/19/20 Admission Diagnosis Patient Problems (Updated 05/20/20 @ 07:38 by Rodney Celeste) Weakness (Acute) R53.1 Belching (Acute) R14.2 Acute epigastric pain (Acute) R10.13 Nausea (Acute) R11.0 Hypoxemia (Acute) R09.02 HTN (hypertension) (Acute) I10 Pneumonia due to 2019 novel coronavirus (Acute) U07.1, J12.89 Hospital Course: Pt is a 55 y/o female pmhx HTN, DMT2, admitted for COVID19 pneumonia(05/19). Her hospital/treatment course included: IVF, Zosyn, Remdesivir (received 6 doses), Solumedrol, Bronchodilators, Tricor, immune supplements, supplemental O2, I/S, RT, Pneumonia protocol, Convalescent plasma(05/25). Labs/imaging: Wbc 9, Hgb 11.8, Plt 348, Na 144, K 3.8, Cr 0.86, Glucose 105. Pt responded well to treatments and on discharge only required supplemental O2 on ambulation. Will arrange for home O2 for ambulation. Pt discharged in stable condition and instructed to follow up with pcp in 3-5 days. Vital Signs: Vital Signs (72 hours) 05/28/20 09:00 05/28/20 09:14 05/28/20 10:00 Temperature Pulse Rate 74 77 92 H Respiratory Rate 16 30 H Blood Pressure O2 Sat by Pulse Oximetry 94 L 95 94 L 05/28/20 11:00 05/28/20 12:00 05/28/20 12:07 Temperature 97.4 F L Pulse Rate 95 H 76 78 Respiratory Rate 23 16 Blood Pressure 142/85 O2 Sat by Pulse Oximetry 69 L 94 L 93 L 05/28/20 13:00 05/28/20 14:00 05/28/20 15:00 Temperature Pulse Rate 93 H 91 H 84 Respiratory Rate 17 28 H 20 Blood Pressure O2 Sat by Pulse Oximetry 94 L 95 96 05/28/20 16:00 05/28/20 16:09 05/28/20 17:00 Temperature 97.5 F L Pulse Rate 80 80 80 Respiratory Rate 17 21 19 Blood Pressure 146/91 O2 Sat by Pulse Oximetry 96 97 97 05/28/20 17:05 05/28/20 18:00 05/28/20 19:00 Temperature Pulse Rate 74 101 H 86 Respiratory Rate 23 28 H Blood Pressure O2 Sat by Pulse Oximetry 95 93 L 94 L 05/28/20 20:00 05/28/20 20:16 05/28/20 21:00 Temperature 97.7 F Pulse Rate 105 H 83 86 Respiratory Rate 29 H 21 27 H Blood Pressure 193/98 160/75 O2 Sat by Pulse Oximetry 87 L 93 L 95 05/28/20 21:26 05/28/20 22:00 05/28/20 23:00 Temperature Pulse Rate 86 91 H 84 Respiratory Rate 17 21 Blood Pressure O2 Sat by Pulse Oximetry 94 L 94 L 92 L 05/29/20 00:00 05/29/20 00:01 05/29/20 01:00 Temperature 97.9 F Pulse Rate 85 86 85 Respiratory Rate 21 17 14 Blood Pressure 146/73 146/73 O2 Sat by Pulse Oximetry 91 L 95 92 L 05/29/20 02:00 05/29/20 03:00 05/29/20 04:00 Temperature 97.4 F L Pulse Rate 86 88 84 Respiratory Rate 25 H 15 21 Blood Pressure 115/75 O2 Sat by Pulse Oximetry 97 95 92 L 05/29/20 04:01 05/29/20 05:00 05/29/20 05:50 Temperature Pulse Rate 83 82 81 Respiratory Rate 23 12 Blood Pressure 115/75 O2 Sat by Pulse Oximetry 94 L 95 94 L 05/29/20 06:00 05/29/20 07:00 05/29/20 08:00 Temperature 97.6 F Pulse Rate 100 H 85 90 Respiratory Rate 50 H 15 26 H Blood Pressure 118/80 O2 Sat by Pulse Oximetry 94 L 94 L 93 L 05/29/20 09:00 05/29/20 10:00 05/29/20 11:00 Temperature Pulse Rate 84 104 H 92 H Respiratory Rate 14 34 H 23 Blood Pressure O2 Sat by Pulse Oximetry 100 90 L 92 L 05/29/20 12:00 05/29/20 13:00 05/29/20 14:00 Temperature 97.8 F Pulse Rate 85 92 H 91 H Respiratory Rate 17 18 16 Blood Pressure 148/83 O2 Sat by Pulse Oximetry 92 L 89 L 89 L 05/29/20 15:00 05/29/20 16:00 05/29/20 17:00 Temperature 97.7 F Pulse Rate 94 H 82 94 H Respiratory Rate 18 16 20 Blood Pressure 138/74 O2 Sat by Pulse Oximetry 89 L 98 95 05/29/20 18:00 05/29/20 19:00 05/29/20 20:00 Temperature 98.1 F Pulse Rate 97 H 93 H 90 Respiratory Rate 23 19 17 Blood Pressure 176/83 O2 Sat by Pulse Oximetry 95 91 L 93 L 05/29/20 20:01 05/29/20 20:32 05/29/20 21:00 Temperature Pulse Rate 81 91 H 93 H Respiratory Rate 18 13 23 Blood Pressure 184/91 176/83 O2 Sat by Pulse Oximetry 91 L 91 L 90 L 05/29/20 21:40 05/29/20 22:00 05/29/20 23:00 Temperature Pulse Rate 77 105 H 97 H Respiratory Rate 8 L 22 Blood Pressure O2 Sat by Pulse Oximetry 92 L 90 L 92 L 05/30/20 00:00 05/30/20 01:00 05/30/20 02:00 Temperature 98.2 F Pulse Rate 97 H 94 H 120 H Respiratory Rate 9 L 25 H 33 H Blood Pressure 160/91 O2 Sat by Pulse Oximetry 88 L 92 L 92 L 05/30/20 03:00 05/30/20 04:00 05/30/20 05:00 Temperature 98.1 F Pulse Rate 98 H 92 H 89 Respiratory Rate 23 18 17 Blood Pressure 171/94 O2 Sat by Pulse Oximetry 91 L 90 L 91 L 05/30/20 06:00 05/30/20 07:00 05/30/20 08:00 Temperature 97.6 F Pulse Rate 94 H 99 H 95 H Respiratory Rate 20 19 19 Blood Pressure 158/82 O2 Sat by Pulse Oximetry 96 89 L 92 L 05/30/20 08:25 05/30/20 09:00 05/30/20 10:00 Temperature Pulse Rate 96 H 90 Respiratory Rate 17 16 Blood Pressure O2 Sat by Pulse Oximetry 94 L 90 L 94 L 05/30/20 11:00 05/30/20 12:00 05/30/20 12:01 Temperature 97.8 F Pulse Rate 92 H 91 H 87 Respiratory Rate 18 17 19 Blood Pressure 179/105 O2 Sat by Pulse Oximetry 90 L 90 L 92 L 05/30/20 12:15 12/06/20 12:37 05/30/20 13:00 Temperature Pulse Rate 101 H 106 H Respiratory Rate 20 23 Blood Pressure 170/82 O2 Sat by Pulse Oximetry 96 90 L 91 L 05/30/20 14:00 05/30/20 15:00 05/30/20 16:00 Temperature 97.6 F Pulse Rate 103 H 97 H 93 H Respiratory Rate 41 H 21 22 Blood Pressure 140/82 O2 Sat by Pulse Oximetry 95 90 L 93 L 05/30/20 16:15 05/30/20 17:00 05/30/20 18:00 Temperature Pulse Rate 95 H 100 H Respiratory Rate 30 H Blood Pressure O2 Sat by Pulse Oximetry 95 92 L 89 L 05/30/20 18:32 05/30/20 19:00 05/30/20 20:00 Temperature 97.8 F Pulse Rate 97 H 92 H 97 H Respiratory Rate 23 24 32 H Blood Pressure 137/94 154/89 O2 Sat by Pulse Oximetry 90 L 89 L 91 L 05/30/20 21:00 05/30/20 21:20 05/30/20 22:00 Temperature Pulse Rate 95 H 84 98 H Respiratory Rate 22 24 Blood Pressure O2 Sat by Pulse Oximetry 95 94 L 89 L 05/30/20 23:00 05/31/20 00:00 05/31/20 01:00 Temperature 98.1 F Pulse Rate 98 H 95 H 95 H Respiratory Rate 21 24 8 L Blood Pressure 148/80 O2 Sat by Pulse Oximetry 89 L 91 L 91 L 05/31/20 02:00 05/31/20 03:00 05/31/20 04:00 Temperature 98.2 F Pulse Rate 90 83 94 H Respiratory Rate 29 H 0 L 19 Blood Pressure 151/81 O2 Sat by Pulse Oximetry 93 L 93 L 87 L 05/31/20 05:00 05/31/20 06:00 05/31/20 07:00 Temperature Pulse Rate 94 H 81 77 Respiratory Rate 14 12 12 Blood Pressure O2 Sat by Pulse Oximetry 91 L 96 97 05/31/20 08:00 05/31/20 08:01 05/31/20 08:10 Temperature 98.1 F Pulse Rate 78 79 Respiratory Rate 14 Blood Pressure 151/66 O2 Sat by Pulse Oximetry 94 L 98 90 L Labs: Laboratory Last Values WBC 9.0 X10^3/uL (3.6-10.0) 05/31/20 04:11 RBC 4.63 X10^6/uL (3.5-5.4) 05/31/20 04:11 Hgb 11.8 g/dL (12.0-16.0) L 05/31/20 04:11 Hct 37.8 % (36.0-47.0) 05/31/20 04:11 MCV 81.5 fL (80.0-100.0) 05/31/20 04:11 MCH 25.5 pg (27.0-34.0) L 05/31/20 04:11 MCHC 31.3 g/dL (33.0-35.0) L 05/31/20 04:11 RDW 14.6 % (11.6-16.5) 05/31/20 04:11 Plt Count 348 X10^3/uL (150.0-450.0) 05/31/20 04:11 Plt Count Comment Adequate (ADEQUATE) 05/31/20 04:11 MPV 8.5 fL (7.4-11.0) 05/31/20 04:11 Neut % (Auto) 63.3 % (42.0-75.0) 05/31/20 04:11 Lymph % (Auto) 25.8 % (21.0-51.0) 05/31/20 04:11 [place] % (Auto) 7.6 % (0.0-13.0) 05/31/20 04:11 Eos % (Auto) 2.7 % (0.9-2.9) 05/31/20 04:11 Baso % (Auto) 0.6 % (0.2-1.0) 05/31/20 04:11 Neut # (Auto) 5.7 x10^3/uL (2.2-4.8) H 05/31/20 04:11 Lymph # (Auto) 2.3 X10^3/uL (1.3-2.9) 05/31/20 04:11 [place] # (Auto) 0.7 x10^3/uL (0.3-0.8) 05/31/20 04:11 Eos # (Auto) 0.2 x10^3/uL (0.0-0.2) 05/31/20 04:11 Baso # (Auto) 0.1 X10^3/uL (0.0-0.1) 05/31/20 04:11 Absolute Nucleated RBC 0.0 /100WBC 05/31/20 04:11 Total Counted 100 05/29/20 05:45 Neutrophils % (Manual) 73 % (39-76) 05/29/20 05:45 Lymphocytes % (Manual) 11 % (13-43) L 05/29/20 05:45 Monocytes % (Manual) 15 % (4-9) H 05/29/20 05:45 Basophils % (Manual) 1 % (0-1) 05/29/20 05:45 Plt Morphology Comment Normal (NORMAL) 05/31/20 04:11 RBC Morphology Abnormal (NORMAL) A 05/31/20 04:11 Hypochromasia Slight A 05/31/20 04:11 D-Dimer 0.95 ug/ml (0.0-0.57) H* 05/19/20 13:19 Sample Site Lrad 05/21/20 05:39 ABG pH 7.400 (7.35-7.45) 05/21/20 05:39 ABG pCO2 46.0 mmHg (35.0-45.0) H 05/21/20 05:39 ABG pO2 56.0 mmHg (80.0-100.0) L 05/21/20 05:39 ABG HCO3 28.5 mmol/L (22-26) H 05/21/20 05:39 ABG O2 Saturation 89.0 % (90-100) L 05/21/20 05:39 ABG Base Excess 3.1 mmol/L (-2.0-2.0) H 05/21/20 05:39 Tristen Test Pos 05/21/20 05:39 A-a Gradient 143.0 mmHg 05/21/20 05:39 FiO2 36.0 05/21/20 05:39 Blood Gas Comments Kd abg well-mtf 05/21/20 05:39 Sodium 144 mmol/L (136-145) 05/31/20 04:11 Corrected Sodium TNP 05/31/20 04:11 Potassium 3.8 mmol/L (3.5-5.1) 05/31/20 04:11 Chloride 105 mmol/L (98-107) 05/31/20 04:11 Carbon Dioxide 32.8 mmol/L (21-32) H 05/31/20 04:11 BUN 15 mg/dL (7-18) 05/31/20 04:11 Creatinine 0.86 mg/dL (0.55-1.02) 05/31/20 04:11 Est GFR (MDRD) Af Amer > 60 (>60) 05/31/20 04:11 Est GFR (MDRD) Non-Af > 60 (>60) 05/31/20 04:11 Glucose 105 mg/dL (65-99) H 05/31/20 04:11 POC Glucose (mg/dL) 128 mg/dL (65-99) H 05/30/20 19:47 Calcium 8.4 mg/dL (8.5-10.1) L 05/31/20 04:11 Corrected Calcium 9.4 mg/dL (8.5-10.1) 05/31/20 04:11 Ferritin 324 ng/mL (8-252) H 05/23/20 05:15 Total Bilirubin 0.50 mg/dL (0.2-1.0) 05/31/20 04:11 AST 20 Units/L (15-37) 05/31/20 04:11 ALT 23 Units/L (12-78) 05/31/20 04:11 Alkaline Phosphatase 46 Units/L (46-116) 05/31/20 04:11 Creatine Kinase 148 Units/L (26-192) 05/19/20 13:19 CK-MB (CK-2) < 1.0 ng/mL (0-4.0) 05/19/20 13:19 CK/CKMB % Calc 0.7 % (<4) 05/19/20 13:19 Troponin I < 0.02 ng/mL (0-1.5) 05/19/20 13:19 C-Reactive Protein 12.60 mg/L (0-3.0) H 05/28/20 04:50 Total Protein 6.1 g/dL (6.4-8.2) L 05/31/20 04:11 Albumin 2.7 g/dL (3.4-5.0) L 05/31/20 04:11 Globulin 3.4 g/dL (2.5-4.5) 05/31/20 04:11 Albumin/Globulin Ratio 0.8 Ratio (1.1-2.1) L 05/31/20 04:11 Amylase 43 Units/L (25-115) 05/19/20 13:19 Lipase 210 Units/L (73-393) 05/19/20 13:19 SARS-CoV-2 (PCR) Positive (NEGATIVE) A 05/19/20 17:34 Blood Type B POSITIVE 05/24/20 20:12 Reason For Visit: HYPOXEMIA, LUNG OPACITIES, BELCHING Discharge Date Discharge Date: 05/31/20 Discharge Diagnosis All Active Problems (Updated 05/20/20 @ 07:38 by Rodney Celeste) Weakness (Acute) Belching (Acute) Acute epigastric pain (Acute) Nausea (Acute) Hypoxemia (Acute) HTN (hypertension) (Acute) Pneumonia due to 2019 novel coronavirus (Acute) Plan of Treatment: Continue with present treatment and follow up plan. Pt is to keep follow up appointment as instructed and take medications as ordered. Discharge Medications Discharge Medications: No Known Drug Allergies Allergy (Verified 05/19/20 11:39) CONTINUE taking the following medications amlodipine 5 mg PO DAILY 05/19/20 [History] dicyclomine 10 mg PO PRN PRN 05/19/20 [History] famotidine 20 mg PO BID 05/19/20 [History] lansoprazole 30 mg PO AC 05/19/20 [History] ondansetron HCl 4 mg PO TID PRN 05/19/20 [History] promethazine 25 mg PO PRN PRN 05/19/20 [History] New Prescriptions simethicone 125 mg PO TID PRN #30 tab 05/19/20 [Rx] metformin 500 mg PO BID 30 Days #60 tab 05/31/20 [Rx] pioglitazone 15 mg PO DAILY 30 Days #30 tab 05/31/20 [Rx] Discharge Disposition Discharge Disposition: Home Discharge Condition: Stable Discharge Plan Discharge Plan Hospital Course: Pt is a 55 y/o female pmhx HTN, DMT2, admitted for COVID19 pneumonia(05/19). Her hospital/treatment course included: IVF, Zosyn, Remdesivir (received 6 doses), Solumedrol, Bronchodilators, Tricor, immune supplements, supplemental O2, I/S, RT, Pneumonia protocol, Convalescent plasma(05/25). Labs/imaging: Wbc 9, Hgb 11.8, Plt 348, Na 144, K 3.8, Cr 0.86, Glucose 105. Pt responded well to treatments and on discharge only required supplemental O2 on ambulation. Will arrange for home O2 for ambulation. Pt discharged in stable condition and instructed to follow up with pcp in 3-5 days. Patient Disposition: 01 HOME, SELF-CARE Condition: Stable Health Concerns: Post Hospitalization: new medications and changes needed to prevent readmission or further decline. Pt educated and given instructions on all concerns. Care Plan Goals: Problem: Respiratory Complications Goal: Improved Uncomplicated Respiratory Status Instructions: Follow provided instructions. Follow up with primary physician as directed. Contact primary care physician or report to the closest Emergency Room if condition worsens. Plan of Treatment: Continue with present treatment and follow up plan. Pt is to keep follow up appointment as instructed and take medications as ordered. Prescription drug monitoring program results: PDMP was not reviewed Prescriptions: New simethicone 125 mg tablet,chewable 125 mg PO TID PRNQty: 30 RF: 0 pioglitazone 15 mg Tablet 15 mg PO DAILY 30 Days Qty: 30 RF: 0 metformin 500 mg Tablet Extended Release 24 Hr 500 mg PO BID 30 Days Qty: 60 RF: 0 Continued ondansetron HCl 4 mg tablet 4 mg PO TID PRNRF: 0 amlodipine 5 mg tablet 5 mg PO DAILY RF: 0 famotidine 20 mg tablet 20 mg PO BID RF: 0 lansoprazole 30 mg Capsule,Delayed Release(Dr/Ec) 30 mg PO AC RF: 0 promethazine 25 mg tablet 25 mg PO PRN PRNRF: 0 dicyclomine 10 mg capsule 10 mg PO PRN PRNRF: 0 Discontinued pantoprazole [Protonix] 20 mg tablet,delayed release (DR/EC) 20 mg PO DAILY RF: 0 Follow ups/Referrals Follow ups/Referrals: [facility] [Other] NAVEEN JUAREZ [REFERRING] - 06/07/20 1:00 pm Instructions Instructions: Incentive Spirometer, Viral Respiratory Infection, Anlu-Dc-Wjqq, Home Oxygen Use, Adult, Hand Washing, Tcek-yt-Suyg, Weakness, Xhzo-ek-Xkfn, Droplet Precautions, Yunq-gk-Uwlj, Contact Precautions, Omty-kv-Ktse, Hypertension, Pphf-ne-Zpwb, Nausea, Adult, Ufgl-cu-Jgfk, Community-Acquired Pneumonia, Adult, Juub-zx-Pzcn Stand Alone Forms: Convalescent Plasma, Precautions for COVID19, Patient Portal, Social Distancing
[2020-05-31] MEDS: PROTONIX INJ 40 MG VIAL IVP SCH (09:30)
[2020-05-31 12:54] VITALS: BP 163/95
== END 2020-05-31 16:45 | disposition home or self-care (01) | DRG 177 ==
LOC: ER 11:29 → ICU 18:55
PROVIDERS: ADMIT Family Medicine; ATTEND Family Medicine

== ENCOUNTER 2020-07-14 18:06 | Observation (INO) ==
[2020-07-14] MEDS ORDERED: ZOFRAN INJ 4 MG VIAL IVP PRN (18:17)
--- NOTE | 2020-07-14 18:22 | DR.H&P ---
H&P - History & Physical for Day of: H&P Date: 07/14/20 - Chief Complaint Chief Complaint: N/V/D, RIGHT SIDE ABDOMINAL PAIN, CHOKING - History of Present Illness History of Present Illness: PT IS 55 BF DIRECT ADMIT FROM DR CORDOBA OFFICE WITH CO DEHYDRATION DUE TO N/V/D. PT STATES SHE HAS GI SYMPTOMS WITH WEIGHT LOSS, FEELS LIKE FOOD GETS STUCK IN HER THROAT, FOLLOWED BY VOMITING. PT REPORTS SHE SEEN GI IN [place] AND HAD COLONOSCOPY WITHOUT COMPLICATIONS. PT HAS BEEN ON PPI THERAPY AND CARAFATE FOR ONE MONTH WITHOUT IMPROVEMENT. PAIN RADIATES TO MID BACK. PT HAS PMH OF HTN AND DM. PT ADMITTED FOR TREATMENT OF ACUTE ILLNESS, GI CONSULT FOR DYSPAGIA. - Past Medical History Past Medical History: Diabetes, Hypertension - Family History Family Medical History: Diabetes Mellitus, Cancer, [place], Coronary Artery Disease, Hypertension - Social History Does patient currently use any type of tobacco product: No Have you used tobacco products in the last 12 months: No Type of Tobacco Use: None Does any household member use tobacco: No Alcohol Use: None Drug Use: None Risks, benefits, and alternatives of opioids discussed: No Prescription drug monitoring program results: PDMP reviewed and no concerns identified - Medications Home Medications: No Known Drug Allergies Allergy (Verified 05/19/20 11:39) - Review of Systems Constitutional: Weakness Eyes: No Symptoms Reported ENT: No Symptoms Reported Respiratory: No Symptoms Reported Cardiovascular: No Symptoms Reported Gastrointestinal: Nausea, Vomiting, Abdominal Pain, Diarrhea, Other (DYSPHAGIA) Genitourinary: No Symptoms Reported Musculoskeletal: No Symptoms Reported Skin: No Symptoms Reported Neurological: No Symptoms Reported - Physical Exam Vital Signs: Blood Pressure [Left Arm] 109/60 Oriented: Normal Eyes: Normal Ear: Normal Nose: Normal Throat: Normal Respiratory: RLL Diminished, LLL Diminished Cardiovascular: Normal : Normal Auscultation: Bowel Sounds: Normal Palpation: Normal Tenderness: RUQ, Epigastric Skin: Decreased Turgur Musculoskeletal: Back:Lumbar Psychiatric: Normal Affect: Depressed Speech Pattern: Clear, Appropriate - Assessment/Plan (1) RUQ pain Status: Acute Plan: ADMIT, NPO AFTER MIDNIGHT. PPI THERAPY, GI CONSULT. IV HYDRATION, PAIN A ND NAUSEA CONTROL. BS AND BP MONITORING. CXR ON ADMISSION, ADMISSION LABS CBC CMP UA AMYLASE AND LIPASE. GB US. (2) Dysphasia Status: Acute (3) Acute epigastric pain Status: Acute (4) HTN (hypertension) Qualifiers: Hypertension type: essential hypertension Qualified Code(s): I10 - Essential (primary) hypertension Status: Acute - Allergies Allergies/Adverse Reactions: Allergies Allergy/AdvReac Type Severity Reaction Status Date / Time No Known Drug Allergies Allergy Verified 05/19/20 11:39
[2020-07-14] MEDS ORDERED: NS 1000 ML 1,000 ML IV SCH (19:00)
[2020-07-14 20:39] LABS: BASOPHILS # (AUTO) 0.1 X10^3/uL (0.0-0.1); BASOPHILS % (AUTO) 1.1 % (0.2-1.0); EOSINOPHILS # (AUTO) 0.3 x10^3/uL (0.0-0.2); HEMATOCRIT 37.4 % (36.0-47.0); LYMPHOCYTES # (AUTO) 2.1 X10^3/uL (1.3-2.9); MEAN CORPUSCULAR HEMOGLOBIN 26.2 pg (27.0-34.0); MEAN CORPUSCULAR HGB CONC 31.9 g/dL (33.0-35.0); MEAN CORPUSCULAR VOLUME 82.2 fL (80.0-100.0); MEAN PLATELET VOLUME 7.9 fL (7.4-11.0); MONOCYTES # (AUTO) 0.7 x10^3/uL (0.3-0.8); MONOCYTES % (AUTO) 10.7 % (0.0-13.0); NEUTROPHILS # (AUTO) 3.5 x10^3/uL (2.2-4.8); NEUTROPHILS % (AUTO) 52.2 % (42.0-75.0); PLATELET COUNT 283 X10^3/uL (150.0-450.0); RED BLOOD COUNT 4.56 X10^6/uL (3.5-5.4); RED CELL DISTRIBUTION WIDTH 15.9 % (11.6-16.5); WHITE BLOOD COUNT 6.7 X10^3/uL (3.6-10.0)
[2020-07-14 20:51] LABS: ALANINE AMINOTRANSFERASE 13 Units/L (12-78); ALBUMIN 3.2 g/dL (3.4-5.0); ALKALINE PHOSPHATASE 70 Units/L (46-116); AMYLASE 43 Units/L (25-115); ASPARTATE AMINO TRANSFERASE 11 Units/L (15-37); BLOOD UREA NITROGEN 8 mg/dL (7-18); CALCIUM 8.9 mg/dL (8.5-10.1); CARBON DIOXIDE 33.1 mmol/L (21-32); CHLORIDE 106 mmol/L (98-107); COR CA(FOR HYPOALB) 9.5 mg/dL (8.5-10.1); COR NA(FOR HYPERGLY) 147 mmol/L (136-145); CREATININE 1.07 mg/dL (0.55-1.02); LIPASE 210 Units/L (73-393); SODIUM 146 mmol/L (136-145); TOTAL PROTEIN 7.1 g/dL (6.4-8.2); eGFR NON BLACK RACES 56 (>60)
--- NOTE | 2020-07-14 22:33 | RAD ---
HISTORYSOBSTUDYCHEST, 1 VIEWCOMPARISONDecember 2019[facility], AP portable projection, 1 imageFINDINGSNo cardiomegaly.No focal airspace disease.No pleural effusion.No pneumothorax.No acute osseous abnormality.IMPRESSIONNo imaging findings of acute cardiopulmonary disease.Electronically signed by: Kevin iDggs (Jul 14, 2020 22:31:45)
[2020-07-15 07:25] LABS: BILIRUBIN,URINE NEGATIVE (NEGATIVE); BLOOD/HEMOGLOBIN,URINE NEGATIVE (NEGATIVE); GLUCOSE, URINE NEGATIVE (NEGATIVE); KETONES,URINE NEGATIVE (NEGATIVE); LEUKOCYTE ESTERASE ,URINE NEGATIVE (NEGATIVE); NITRITES,URINE NEGATIVE (NEGATIVE); PROTEIN,URINE 1+ (NEGATIVE); UROBILINOGEN,URINE NORMAL (NORMAL)
[2020-07-15 07:54] LABS: APPEARANCE,URINE SLIGHTLY HAZY (CLEAR); COLOR,URINE YELLOW (YELLOW)
[2020-07-15 07:55] LABS: BACTERIA,URINE 2+ /HPF (NEGATIVE); RBC,URINE 0-2 /HPF (0-3); SQUAMOUS EPITHELIAL CELL,UR FEW /HPF (NEGATIVE)
[2020-07-15] MEDS: PROTONIX INJ 40 MG VIAL IVP SCH (08:43)
[2020-07-15] MEDS ORDERED: APRESOLINE INJ 20 MG VIAL IVP PRN (08:54)
[2020-07-15] MEDS ORDERED: APRESOLINE INJ 20 MG VIAL ONE (09:56)
[2020-07-15] MEDS: NS 1/2 1000 ML IV 1,000 ML IV SCH ×2 (10:14→11:29)
--- NOTE | 2020-07-15 11:01 | US ---
HISTORYRUQ PAINSTUDYLimited abdominal ultrasoundCOMPARISONNoneFINDINGSMild degree of hepatomegaly is present with the liver measuring 20 ce ntimeters in greatest craniocaudad dimension. Fatty changes are noted in the liver as well. Portal ve in is patent with normal hepatopetal flow.Gallbladder is normal appearing with no cholelithiasis, gal lbladder wall thickening, or localized tenderness. Common bile duct measures 2 millimeters in diamete r.Right kidney is 10.5 centimeters in length. No hydronephrosis, echogenic calculi, or renal mass is seen on the right.IVC and pancreas are normal appearing.IMPRESSION1. Mild hepatomegaly. Fatty changes are noted in the liver as well.2. No cholelithiasis.3. Remainder of the exam is unremarkableElectron ically signed by: JULIETH BULL (Jul 15, 2020 10:59:59)
[2020-07-15] MEDS ORDERED: NS 1000 ML 1,000 ML ONE (11:22)
[2020-07-15 18:25] VITALS: BMI 61.3
--- NOTE | 2020-07-15 18:47 | RAD ---
KUBHistory: C/O NAUSEA, VOMITING WITH ABD. PAIN AND UPPER BACK PAINComparison: 06/10/2020Findings: The visualized bowel gas pattern is nonobstructive. No free air or pneumatosis is identified. No definite pathologic calcifications seen. Imaged osseous structures are grossly intact.Impression: Nonobstructive bowel gas pattern.Electronically signed by: ARACELY ARTEAGA (Jul 15, 2020 18:45:20)
[2020-07-16] MEDS ORDERED: NS 1/2 1000 ML IV 1,000 ML IV ONE (07:54)
[2020-07-16] MEDS: NS 1/2 1000 ML IV 1,000 ML IV SCH ×2 (08:00→11:50)
[2020-07-16] MEDS ORDERED: DIPRIVAN VIAL 40 ML ONE (09:23)
[2020-07-16] MEDS: PROTONIX INJ 40 MG VIAL IVP SCH (10:11)
[2020-07-16 14:27] VITALS: BP 172/91
== END 2020-07-16 15:00 | disposition home or self-care (01) ==
LOC: MED/SURG → OBS 20:45
PROVIDERS: ADMIT Internal Medicine; ATTEND Internal Medicine
DX: E66.01 Morbid (severe) obesity due to excess calories; K44.9 Diaphragmatic hernia without obstruction or gangrene; E86.0 Dehydration; K29.00 Acute gastritis without bleeding; K21.9 Gastro-esophageal reflux disease without esophagitis; R10.11 Right upper quadrant pain; Z20.822 Contact with and (suspected) exposure to COVID-19; R06.02 Shortness of breath; E11.65 Type 2 diabetes mellitus with hyperglycemia; Z86.16 Personal history of COVID-19; R10.13 Epigastric pain; R13.11 Dysphagia, oral phase; I10 Essential (primary) hypertension; R60.0 Localized edema; R19.7 Diarrhea, unspecified; R11.2 Nausea with vomiting, unspecified